=== PATIENT | female | born 1960 | race Caucasian/White ===

== ENCOUNTER 2016-05-15 08:13 | Emergency (ER) | payer OTHER ==
[2016-05-15 08:50] LABS: MEAN CORPUSCULAR HEMOGLOBIN 32.3 pg (27.0-33.0); MEAN CORPUSCULAR HGB CONC 34.2 g/dl (32.0-36.5); MEAN CORPUSCULAR VOLUME 94.5 fl (80.0-96.0); RED CELL DISTRIBUTION WIDTH 11.8 % (11.5-14.5); WHITE BLOOD COUNT 6.4 K/mm3 (4.0-10.0)
[2016-05-15] MEDS ORDERED: KETOROLAC 30 MG/ML VIAL (J1885) As Ordered ONE (08:51)
[2016-05-15] MEDS ORDERED: ONDANSETRON 4MG/2ML VIAL (J2405) As Ordered ONE (08:51)
[2016-05-15] MEDS ORDERED: MORPHINE 4 MG/ML 1ML SYRINGE As Ordered ONE ×3 (08:51→13:57)
[2016-05-15 08:57] LABS: ANION GAP 12 MEQ/L (8-16); BLOOD UREA NITROGEN 10 MG/DL (7-18); CALCIUM LEVEL 9.1 MG/DL (8.5-10.1); CARBON DIOXIDE LEVEL 26 MEQ/L (21-32); CHLORIDE LEVEL 108 MEQ/L (98-107); GLOMERULAR FILTRATION RATE > 60.0 (>51); GLUCOSE, FASTING 161 MG/DL (70-105); POTASSIUM SERUM 3.8 MEQ/L (3.5-5.1); SODIUM LEVEL 146 MEQ/L (136-145)
[2016-05-15] MEDS ORDERED: diphenhydrAMINE INJ 50MG/ML VIAL (J1200) As Ordered ONE (09:28)
--- NOTE | 2016-05-15 09:40 | REP ---
Clinical: Left flank pain. Comparison: 05/17/2010. Findings: Mild to moderate acute left-sided obstructive uropathy is appreciated with perinephric and periureteral stranding as well as hydroureteronephrosis secondary to a 4 mm calculus in the distal left ureter (images 130 - 131). The right kidney/ureter and bladder appear normal and no further urinary tract calculi are identified. Liver, spleen, pancreas, bilateral adrenal glands are normal for noncontrast examination. The patient is status post cholecystectomy. The enteric system is without obstruction or acute inflammatory process. No pelvic fluid or ascites. No free air. No adenopathy. Pelvis demonstrates collapsed normal bladder and age-appropriate uterus/adnexa. Atherosclerotic changes of the aorta and branch vessels noted without aneurysm. Surrounding musculoskeletal structures demonstrate degenerative changes without focal osseous abnormality. Lung bases clear. Impression: Acute mild to moderate left-sided obstructive uropathy with a 4 mm obstructing calculus in the distal left ureter. Signed by Marvin Narayan MD 05/15/2016 09:32 A
[2016-05-15] MEDS ORDERED: cefTRIAXone SOD 1 GM VIAL (J0696) As Ordered ONE (13:49)
--- NOTE | 2016-05-15 15:20 | EDDOCDS ---
Physician Documentation [facility] Name: Stacie Canales Age: 55 yrs Sex: Female : 1960 Arrival Date: 05/15/2016 Time: 08:13 Bed 5 Private MD: Disposition: 05/15 13:55 I have independently interviewed and examined the patient, and I agree with the sd1 investigation, diagnosis and treatment plan as documented by the Resident. Disposition: 05/15/16 14:50 Discharged to Home/Self Care. Impression: Calculus of ureter. - Condition is Stable. - Discharge Instructions: Kidney Stones, Dietary Guidelines to Help Prevent Kidney Stones. - Prescriptions for Percocet 5- 325 mg Oral Tablet - take 1 tablet by ORAL route every 6 hours As needed MDD: 4 tabs; 20 tablet. Cipro 500 mg Oral Tablet - take 1 tablet by ORAL route every 12 hours; 14 tablet. - Medication Reconciliation, Local Pharmacy Hours form. - Follow up: Bethel Navarrete; When: 1 week; Reason: Recheck today's complaints. - Problem is new. - Symptoms have improved. - Notes: You were evaluated in the emergency department for kidney stones. Your laboratory results were essentially within normal limits. The CT of your abdomen and pelvis reported an obstructing stone in the distal portion of your ureter (the tube between your kidney and bladder.) Your pain was controlled with medication in the ED. Pain medication has been prescribed for out-patient control. An analysis of your urine showed an infection for which an antibiotic was given in the ED and a prescription has been provided as an out-patient. Please follow-up in the ED in 24 hours to re-assess your symptoms. Also please follow-up with Bethel Navarrete in 1 week. Historical: - Allergies: Codeine Sulfate (Vomit); - Home Meds: 1. Nexium Oral 1 cap once daily (Last dose: 05/14/2016 20:00) 2. Tricor Oral 1 cap once daily (Last dose: 05/15/2016 08:00) - PMHx: GERD; Hypercholesterolemia; - PSHx: Appendectomy; Cholecystectomy; - Social history: Smoking status: Patient states former smoker of tobacco. No barriers to communication noted, The patient speaks fluent Korean. - Family history: Not pertinent. - : The pt / caregiver states he / she is not on anticoagulants. Home medication list is obtained from the patient. - Exposure Risk Screening:: None identified. Vital Signs: 08:25 BP 196 / 90; Pulse 72; Resp 22; Pulse Ox 95% on R/A; Weight 77.11 kg / 170 lbs; Height dwg 5 ft. 3 in. (160.02 cm); Pain 10/10; 08:27 Temp 96.8(O); dwg 09:30 BP 180 / 89; Pulse 65; Resp 18; Temp 97.8(O); Pulse Ox 94% on R/A; Pain 6/10; ck1 13:06 BP 123 / 69; Pulse 71; Resp 18; Temp 98.3(O); Pulse Ox 94% on R/A; Pain 2/10; ck1 14:29 BP 123 / 60; Pulse 92; Resp 18; Pulse Ox 96% on R/A; Pain 2/10; kc3 15:16 BP 134 / 65; Pulse 88; Resp 18; Temp 98.5(O); Pulse Ox 92% on R/A; Pain 2/10; ck1 08:25 Body Mass Index 30.11 (77.11 kg, 160.02 cm) dwg MDM: 08:41 IV Saline Lock ordered. jo4 08:42 morphine 4 mg IVP every 15 minutes; Document pain score/vitals after each dose (Hold if jo4 SBP < 90mmHg) x2 ordered. 08:42 ketorolac 15 mg IVP once ordered. jo4 08:42 Ondansetron 4 mg IVP once ordered. jo4 08:42 Urine Strainer ordered. jo4 08:43 CBC Ordered. EDMS 08:43 BMP Ordered. EDMS 08:43 Urinalysis Ordered. EDMS 08:46 CT ABD & PELVIS: No Contrast Ordered. EDMS 08:56 CBC Reviewed. jo4 09:08 ED course: 55 yo female healthy presents reporting abrupt onset of left flank pain with sd1 hematuria no F/C and with N/V no abdominal pain never similar symptoms nothing makes pain worse or better exam well appearing in no distress heart rrr no murmur lungs ctab abd benign +cvat plan pain control labs imaging. 09:15 diphenhydrAMINE 12.5 mg IVP once ordered. jo4 09:15 BMP Reviewed. jo4 09:30 [facility] Payment Agreement was scanned into [employer] and attached to record. jp5 09:30 Financial registration complete. jp5 11:45 Fluid Challenge ordered. jo4 13:15 CT ABD & PELVIS: No Contrast Reviewed. jo4 13:44 Urinalysis Reviewed. jo4 13:46 cefTRIAXone 1 grams IVPB once over 30 mins; dilute in 50mL of NS or D5W ordered. jo4 13:55 morphine 4 mg IVP every 15 minutes; Document pain score/vitals after each dose (Hold if jo4 SBP < 90mmHg) x2 ordered. 14:08 oxyCODONE-acetaminophen 5 mg-325 mg 1 tabs PO once ordered. jo4 Administered Medications: 08:57 Drug: morphine 4 mg [morphine 4 mg/mL intravenous cartridge (1 mL)] Route: IVP; Site: ck1 right hand; 09:30 Follow up: BP 180 / 89; Pulse 65 bpm; Resp 18 bpm; Temp 97.8 Oral; Pulse Ox 94% RA; ck1 Pain 6/10 Adult; Response: Confirmed pt not driving.; No Adverse Reaction; Pain is decreased 08:57 Drug: ketorolac 15 mg [ketorolac 30 mg/mL (1 mL) injection solution (0.5 mL)] Route: ck1 IVP; Site: right hand; 08:57 Drug: Ondansetron 4 mg [ondansetron HCl 2 mg/mL intravenous solution (2 mL)] Route: 1 IVP; Site: right hand; 09:30 Drug: diphenhydrAMINE 12.5 mg [diphenhydramine 50 mg/mL injection solution (0.25 mL)] [facility] Route: IVP; Site: right hand; 11:36 Drug: morphine 4 mg [morphine 4 mg/mL intravenous cartridge (1 mL)] Route: IVP; Site: ck1 right hand; 14:00 Drug: cefTRIAXone 1 grams [ceftriaxone 1 gram solution for injection] Route: IVPB; kc3 Infused Over: 30 mins; Site: right hand; 14:37 Follow up: IV Status: Completed infusion ck1 14:00 Drug: morphine 4 mg [morphine 4 mg/mL intravenous cartridge (1 mL)] Route: IVP; Site: kc3 right hand; 14:29 Follow up: BP 123 / 60; Pulse 92 bpm; Resp 18 bpm; Pulse Ox 96% RA; Pain 2/10 Adult kc3 14:21 Not Given (Patient Refused): oxyCODONE-acetaminophen 5 mg-325 mg 1 tabs PO once ck1 Signatures: Dispatcher [employer] Lacy Buck MD MD sd1 Iván Beth RN RN Hyacinth Farris RN RN ck1 Matthew Dudley jp5 Crys Donnelly DO DO jo4 Crane, Kelsi RN kc3 The chart was reviewed and I authenticate all verbal orders and agree with the evaluation and treatment provided.Attachments: 09:30 [facility] Payment Agreement jp5 MTDD
--- NOTE | 2016-05-15 15:20 | EDDOCDS ---
Nurse's Notes [facility] Name: Stacie Canales Age: 55 yrs Sex: Female : 1960 Arrival Date: 05/15/2016 Time: 08:13 Bed 5 Private MD: Diagnosis: Calculus of ureter Presentation: 05/15 08:17 Presenting complaint: Patient states: Sudden onset of left flank pain starting at 745am dwg today. Suicide/Homicide risk assessment- the patient denies having any suicidal and/or homicidal ideations and does not present with any other emotional, behavioral or mental health complaints. Status: Patient is not a social service liaison or dependent. Transition of care: patient was not received from another setting of care. 08:17 Acuity: MAYRA Level 3 dwg 08:17 Method Of Arrival: Wheelchair dwg 08:27 Adult Sepsis Screening: The patient does not have new or worsening altered mentation. dwg Patient has a respiratory rate of greater than or equal to 22 (1 point). Systolic blood pressure is greater than 100. Patient has a qSOFA score of 1- Negative Sepsis Screen. 08:27 Presenting complaint: Patient states: Also nauseated with vomiting. Direct to room 5, dwg report given to Hyacinth Burrell RN. Red Flag criteria, patient assessed and taken directly to a bed. Triage Assessment: 08:21 General: Appears in no apparent distress, uncomfortable. Pain: Pain currently is 10 out dwg of 10 on a pain scale. HIV screening NA for this visit Offered previously. Historical: - Allergies: Codeine Sulfate (Vomit); - Home Meds: 1. Nexium Oral 1 cap once daily (Last dose: 05/14/2016 20:00) 2. Tricor Oral 1 cap once daily (Last dose: 05/15/2016 08:00) - PMHx: GERD; Hypercholesterolemia; - PSHx: Appendectomy; Cholecystectomy; - Social history: Smoking status: Patient states former smoker of tobacco. No barriers to communication noted, The patient speaks fluent [place] Island[place]. - Family history: Not pertinent. - : The pt / caregiver states he / she is not on anticoagulants. Home medication list is obtained from the patient. - Exposure Risk Screening:: None identified. Screenin:31 Screening information is obtained from the patient. Fall risk: No risks identified. ck1 Assistance ADL's: requires no assistance with activities of daily living. Abuse/DV Screen: The patient / caregiver reports he/she is: not in a situation that causes fear, pain or injury. Nutritional screening: No deficits noted. Advance Directives: Currently, there is no health care proxy. home support is adequate. Assessment: 08:31 General: Appears distressed, uncomfortable, Behavior is appropriate for age, ck1 cooperative. Pain: Location: left flank Pain currently is 12 out of 10 on a pain scale. Neurological: Level of Consciousness is awake, alert, obeys commands, Oriented to person, place, time. Respiratory: Respiratory effort is unlabored, Respiratory pattern is regular, symmetrical. GI: Reports nausea. : Reports hematuria Denies burning with urination, urinary frequency. Derm: Skin is intact, is healthy with good turgor, Skin is pink, warm & dry. Musculoskeletal: Circulation, motion, and sensation intact Range of motion intact in all extremities. 09:31 General: Appears in no apparent distress, Behavior is appropriate for age, cooperative. ck1 Pain: Location: left flank Pain currently is 6 out of 10 on a pain scale. GI: Denies nausea, vomiting. Derm: Skin is intact, is healthy with good turgor, Skin is pink, warm & dry. Musculoskeletal: Circulation, motion, and sensation intact Range of motion intact in all extremities. 10:30 General: Appears in no apparent distress, comfortable, Behavior is appropriate for age, ck1 cooperative. Pain: Location: left flank Pain currently is 6 out of 10 on a pain scale. Neurological: Level of Consciousness is awake, alert, obeys commands, Oriented to person, place, time. Cardiovascular: No deficits noted. Respiratory: Respiratory effort is unlabored, Respiratory pattern is regular, symmetrical. GI: No deficits noted. Derm: Skin is intact, is healthy with good turgor, Skin is pink, warm & dry. 11:36 General: Appears in no apparent distress, comfortable, Behavior is appropriate for age, ck1 cooperative. Pain: Location: left flank Pain currently is 8 out of 10 on a pain scale. Neurological: Level of Consciousness is awake, alert, obeys commands, Oriented to person, place, time. Cardiovascular: No deficits noted. Respiratory: Respiratory effort is unlabored, Respiratory pattern is regular, symmetrical. GI: Denies nausea, vomiting. Derm: Skin is intact, is healthy with good turgor, Skin is pink, warm & dry. Musculoskeletal: Circulation, motion, and sensation intact Range of motion intact in all extremities. 11:53 General: Patient states pain has improved to 2/10. PO fluids provided, will continue to ck1 monitor. 13:06 General: Appears in no apparent distress, comfortable, Behavior is appropriate for age, ck1 cooperative. Pain: Location: left flank Pain currently is 2 out of 10 on a pain scale. Neurological: Level of Consciousness is awake, alert, obeys commands, Oriented to person, place, time. Cardiovascular: No deficits noted. Respiratory: Respiratory effort is unlabored, Respiratory pattern is regular, symmetrical. GI: No deficits noted. Derm: Skin is intact, is healthy with good turgor, Skin is pink, warm & dry. Musculoskeletal: No deficits noted. 14:05 General: Appears in no apparent distress, comfortable, to be sleeping. Behavior is ck1 appropriate for age, cooperative. Pain: Location: left flank Pain currently is 2 out of 10 on a pain scale. Respiratory: No deficits noted. Derm: Skin is intact, is healthy with good turgor, Skin is pink, warm & dry. Musculoskeletal: Circulation, motion, and sensation intact Range of motion intact in all extremities. 15:17 General: Appears in no apparent distress, comfortable, Behavior is appropriate for age, ck1 cooperative. Pain: Location: left flank Pain currently is 2 out of 10 on a pain scale. Neurological: Level of Consciousness is awake, alert, obeys commands, Oriented to person, place, time. Cardiovascular: No deficits noted. Respiratory: Respiratory effort is unlabored, Respiratory pattern is regular, symmetrical. GI: No deficits noted. Derm: Skin is pink, warm & dry. Musculoskeletal: Circulation, motion, and sensation intact Range of motion intact in all extremities. Vital Signs: 08:25 BP 196 / 90; Pulse 72; Resp 22; Pulse Ox 95% on R/A; Weight 77.11 kg; Height 5 ft. 3 dwg in. (160.02 cm); Pain 10; 08:27 Temp 96.8(O); dwg 09:30 BP 180 / 89; Pulse 65; Resp 18; Temp 97.8(O); Pulse Ox 94% on R/A; Pain 6/; ck1 13:06 BP 123 / 69; Pulse 71; Resp 18; Temp 98.3(O); Pulse Ox 94% on R/A; Pain 2/10; ck1 14:29 BP 123 / 60; Pulse 92; Resp 18; Pulse Ox 96% on R/A; Pain 2/10; kc3 15:16 BP 134 / 65; Pulse 88; Resp 18; Temp 98.5(O); Pulse Ox 92% on R/A; Pain 2/10; ck1 08:25 Body Mass Index 30.11 (77.11 kg, 160.02 cm) [facility] Vitals: 08:21 Log In Time: May 15, 2016 at 08:10. [facility] ED Course: 08:16 Patient visited by Riaz Kaur. mm15 08:16 Patient moved to Waiting mm15 08:17 Hyacinth Flores RN is Primary Nurse. dwg 08:17 Patient moved to 5 dwg 08:18 Crys Donnelly DO is PHCP. jo4 08:18 Lacy Steiner MD is Attending Physician. jo4 08:19 Triage Initiated dwg 08:28 Patient visited by Crys Donnelly DO. jo4 08:30 Inserted saline lock: 20 gauge in right hand and blood collected. The patient tolerated ck1 the procedure well. 08:31 The patient / caregiver is instructed regarding the plan of care and ED course. ck1 08:46 Patient visited by Hyacinth Flores RN. ck1 08:57 Patient visited by Hyacinth Flores RN. ck1 09:18 Patient visited by Hyacinth Flores RN. ck1 09:30 Patient visited by Hyacinth Flores RN. ck1 09:30 [facility] Payment Agreement was scanned into [employer] and attached to record. jp5 09:44 Patient visited by Hyacinth Flores RN. ck1 09:59 CT ABD & PELVIS: No Contrast Returned. EDMS 10:15 Patient visited by Hyacinth Flores RN. ck1 11:06 Patient visited by Hyacinth Flores RN. ck1 11:32 Patient visited by Hyacinth Flores RN. ck1 11:53 Patient visited by Hyacinth Flores RN. ck1 12:18 Urinalysis Sent. mlb1 12:19 Patient visited by Hyacinth Flores RN. ck1 12:54 Patient visited by Curtis Sunshine, JUDIE. jlf 13:07 No procedures done that require assistance. ck1 13:25 Patient visited by Hyacinth Flores,ARMANDO. ck1 13:53 Patient visited by Curtis Sunshine, JUDIE. jlf 14:18 Patient visited by Hyacinth Flores RN. ck1 14:43 Bethel Navarrete is Referral Physician. jo4 14:50 Bethel Navarrete is Referral Physician. jo4 15:16 Discontinued lock intact, bleeding controlled, pressure dressing applied, No ck1 redness/swelling at site. Administered Medications: 08:57 Drug: morphine 4 mg [morphine 4 mg/mL intravenous cartridge (1 mL)] Route: IVP; Site: ck right hand; 09:30 Follow up: BP 180 / 89; Pulse 65 bpm; Resp 18 bpm; Temp 97.8 Oral; Pulse Ox 94% RA; ck1 Pain 6/10 Adult; Response: Confirmed pt not driving.; No Adverse Reaction; Pain is decreased 08:57 Drug: ketorolac 15 mg [ketorolac 30 mg/mL (1 mL) injection solution (0.5 mL)] Route: ck1 IVP; Site: right hand; 08:57 Drug: Ondansetron 4 mg [ondansetron HCl 2 mg/mL intravenous solution (2 mL)] Route: ck1 IVP; Site: right hand; 09:30 Drug: diphenhydrAMINE 12.5 mg [diphenhydramine 50 mg/mL injection solution (0.25 mL)] ck1 Route: IVP; Site: right hand; 11:36 Drug: morphine 4 mg [morphine 4 mg/mL intravenous cartridge (1 mL)] Route: IVP; Site: ck1 right hand; 14:00 Drug: cefTRIAXone 1 grams [ceftriaxone 1 gram solution for injection] Route: IVPB; kc3 Infused Over: 30 mins; Site: right hand; 14:37 Follow up: IV Status: Completed infusion ck1 14:00 Drug: morphine 4 mg [morphine 4 mg/mL intravenous cartridge (1 mL)] Route: IVP; Site: [facility] right hand; 14:29 Follow up: BP 123 / 60; Pulse 92 bpm; Resp 18 bpm; Pulse Ox 96% RA; Pain / Adult 3 14:21 Not Given (Patient Refused): oxyCODONE-acetaminophen 5 mg-325 mg 1 tabs PO once ck1 Order Results: Lab Order: CBC; SPEC'M 05/15/16 08:29 Test: WHITE BLOOD COUNT; Value: 6.4; Range: 4.0-10.0; Units: K/mm3; Status: F Test: RED BLOOD COUNT; Value: 4.26; Range: 4.00-5.40; Units: M/mm3; Status: F Test: HEMOGLOBIN; Value: 13.8; Range: 12.0-16.0; Units: g/dl; Status: F Test: HEMATOCRIT; Value: 40.2; Range: 36.0-47.0; Units: %; Status: F Test: MEAN CORPUSCULAR VOLUME; Value: 94.5; Range: 80.0-96.0; Units: fl; Status: F Test: MEAN CORPUSCULAR HEMOGLOBIN; Value: 32.3; Range: 27.0-33.0; Units: pg; Status: F Test: MEAN CORPUSCULAR HGB CONC; Value: 34.2; Range: 32.0-36.5; Units: g/dl; Status: F Test: RED CELL DISTRIBUTION WIDTH; Value: 11.8; Range: 11.5-14.5; Units: %; Status: F Test: PLATELET COUNT, AUTOMATED; Value: 207; Range: 150-450; Units: k/mm3; Status: F Lab Order: BMP; SPEC'M 05/15/16 08:29 Test: GLUCOSE, FASTING; Value: 161; Range: 70-105; Abnormal: Above high normal; Units: MG/DL; Status: F Test: BLOOD UREA NITROGEN; Value: 10; Range: 7-18; Units: MG/DL; Status: F Test: CREATININE FOR GFR; Value: 1.00; Range: 0.55-1.02; Units: MG/DL; Status: F Test: GLOMERULAR FILTRATION RATE; Value: > 60.0; Range: >51; Status: F Test: SODIUM LEVEL; Value: 146; Range: 136-145; Abnormal: Above high normal; Units: MEQ/L; Status: F Test: POTASSIUM SERUM; Value: 3.8; Range: 3.5-5.1; Units: MEQ/L; Status: F Test: CHLORIDE LEVEL; Value: 108; Range: 98-107; Abnormal: Above high normal; Units: MEQ/L; Status: F Test: CARBON DIOXIDE LEVEL; Value: 26; Range: 21-32; Units: MEQ/L; Status: F Test: ANION GAP; Value: 12; Range: 8-16; Units: MEQ/L; Status: F Test: CALCIUM LEVEL; Value: 9.1; Range: 8.5-10.1; Units: MG/DL; Status: F Test Note: ; Units are mL/min/1.73 m2 Chronic Kidney Disease Staging per NKF: Stage I & II GFR >=60 Normal to Mildly Decreased Stage III GFR 30-59 Moderately Decreased Stage IV GFR 15-29 Severely Decreased Stage V GFR <15 Very Little GFR Left ESRD GFR <15 on [employer]UCK [employer] HEL[employer] Lab Order: Urinalysis; SPEC'M 05/15/16 12:17 Test: APPEARANCE, URINE; Value: TURBID; Range: CLEAR; Abnormal: Above high normal; Status: F Test: COLOR, URINE; Value: MAGED; Range: YELLOW; Status: F Test: PH,URINE; Value: 5.0; Range: 5.0-9.0; Units: UNITS; Status: F Test: SPECIFIC GRAVITY URINE AUTO; Value: 1.032; Range: 1.002-1.035; Status: F Test: PROTEIN, URINE AUTO; Value: 2+; Range: NEGATIVE; Abnormal: Above high normal; Units: mg/dL; Status: F Test: GLUCOSE, URINE (UA) AUTO; Value: NEGATIVE; Range: NEGATIVE; Units: mg/dL; Status: F Test: KETONE, URINE AUTO; Value: TRACE; Range: NEGATIVE; Abnormal: Above high normal; Units: mg/dL; Status: F Test: UROBILINOGEN, URINE AUTO; Value: 0.2; Range: 0.0-2.0; Units: mg/dL; Status: F Test: BILIRUBIN, URINE AUTO; Value: NEGATIVE; Range: NEGATIVE; Status: F Test: NITRITE, URINE AUTO; Value: NEGATIVE; Range: NEGATIVE; Status: F Test: LEUKOCYTE ESTERASE, URINE AUTO; Value: TRACE; Range: NEGATIVE; Abnormal: Above high normal; Status: F Test: BLOOD, URINE BLOOD; Value: 3+; Range: NEGATIVE; Abnormal: Above high normal; Status: F Test: WBC, URINE AUTO; Value: 58; Range: 0-3; Abnormal: Above high normal; Units: /HPF; Status: F Test: RBC, URINE AUTO; Value: TNTC; Range: 0-3; Abnormal: Above high normal; Units: /HPF; Status: F Test: BACTERIA, URINE AUTO; Value: 2+; Range: NEGATIVE; Abnormal: Above high normal; Status: F Test: SQUAMOUS EPITHELIAL CELL UR AU; Value: 2; Range: 0-6; Units: /HPF; Status: F Test: MUCUS, URINE; Value: LARGE; Range: NEGATIVE; Status: F Test: HYALINE CAST, URINE AUTO; Value: 0; Range: 0-1; Units: /LPF; Status: F Test: AMORPHOUS SEDIMENT; Value: MODERATE; Range: NEGATIVE; Abnormal: Above high normal; Status: F Radiology Order: CT ABD & PELVIS: No Contrast Test: CT ABD & PELVIS: No Contrast REASON FOR EXAMINATION: Left flank pain; Clinical: Left flank pain.; ; Comparison: 05/17/2010.; ; Findings:; Mild to moderate acute left-sided obstructive uropathy is appreciated with; perinephric and periureteral stranding as well as hydroureteronephrosis secondary; to a 4 mm calculus in the distal left ureter (images 130 - 131). The right; kidney/ureter and bladder appear normal and no further urinary tract calculi are; identified.; ; Liver, spleen, pancreas, bilateral adrenal glands are normal for noncontrast; examination. The patient is status post cholecystectomy. The enteric system is; without obstruction or acute inflammatory process. No pelvic fluid or ascites.; No free air. No adenopathy. Pelvis demonstrates collapsed normal bladder and; age-appropriate uterus/adnexa. Atherosclerotic changes of the aorta and branch; vessels noted without aneurysm. Surrounding musculoskeletal structures; demonstrate degenerative changes without focal osseous abnormality. Lung bases; clear.; ; Impression:; Acute mild to moderate left-sided obstructive uropathy with a 4 mm obstructing; calculus in the distal left ureter.; ; ; Signed by; Marvin Narayan MD 05/15/2016 09:32 A; Outcome: 13:07 Discharge Assessment: patient administered narcotics - yes. Pt provided with safe ck1 discharge. CT Study completed. 14:47 Discharge ordered by Provider. jo4 14:50 Discharge ordered by Provider. jo4 15:16 The following High Risk Discharge criteria are identified: None. Discharged to home ck1 ambulatory, with significant other. Condition: stable. Discharge instructions given to patient, Instructed on discharge instructions, follow up and referral plans. medication usage, Demonstrated understanding of instructions, medications, Pt was receptive of discharge instructions/ teaching. Property :Personal belongings accompany Pt. 15:19 Patient left the ED. ck1 Signatures: Dispatcher [employer] EDMS Iván Beth, RN RN Mike Schrader RN RN mlb1 Hyacinth Flores RN RN ck1 Riaz Kaur mm15 Curtis Sunshine, JUDIE SEAL EXTRUSION OPERATOR Matthew Rich jp5 Deysi Garcia,ARMANDO RN kc3 Crys Donnelly DO DO jo4 MTDRoselia
--- NOTE | 2016-05-17 16:20 | EDDOCDS ---
Physician Documentation [facility] Name: Stacie Canales Age: 55 yrs Sex: Female : 1960 Arrival Date: 05/15/2016 Time: 08:13 Bed 5 Private MD: Disposition: 05/15 13:55 I have independently interviewed and examined the patient, and I agree with the sd1 investigation, diagnosis and treatment plan as documented by the Resident. Disposition: 05/15/16 14:50 Discharged to Home/Self Care. Impression: Calculus of ureter. - Condition is Stable. - Discharge Instructions: Kidney Stones, Dietary Guidelines to Help Prevent Kidney Stones. - Prescriptions for Percocet 5- 325 mg Oral Tablet - take 1 tablet by ORAL route every 6 hours As needed MDD: 4 tabs; 20 tablet. Cipro 500 mg Oral Tablet - take 1 tablet by ORAL route every 12 hours; 14 tablet. - Medication Reconciliation, Local Pharmacy Hours form. - Follow up: Bethel Navarrete; When: 1 week; Reason: Recheck today's complaints. - Problem is new. - Symptoms have improved. - Notes: You were evaluated in the emergency department for kidney stones. Your laboratory results were essentially within normal limits. The CT of your abdomen and pelvis reported an obstructing stone in the distal portion of your ureter (the tube between your kidney and bladder.) Your pain was controlled with medication in the ED. Pain medication has been prescribed for out-patient control. An analysis of your urine showed an infection for which an antibiotic was given in the ED and a prescription has been provided as an out-patient. Please follow-up in the ED in 24 hours to re-assess your symptoms. Also please follow-up with Bethel Navarrete in 1 week. Historical: - Allergies: Codeine Sulfate (Vomit); - Home Meds: 1. Nexium Oral 1 cap once daily (Last dose: 05/14/2016 20:00) 2. Tricor Oral 1 cap once daily (Last dose: 05/15/2016 08:00) - PMHx: GERD; Hypercholesterolemia; - PSHx: Appendectomy; Cholecystectomy; - Social history: Smoking status: Patient states former smoker of tobacco. No barriers to communication noted, The patient speaks fluent [place]. - Family history: Not pertinent. - : The pt / caregiver states he / she is not on anticoagulants. Home medication list is obtained from the patient. - Exposure Risk Screening:: None identified. Vital Signs: 08:25 BP 196 / 90; Pulse 72; Resp 22; Pulse Ox 95% on R/A; Weight 77.11 kg / 170 lbs; Height dwg 5 ft. 3 in. (160.02 cm); Pain 10/10; 08:27 Temp 96.8(O); dwg 09:30 BP 180 / 89; Pulse 65; Resp 18; Temp 97.8(O); Pulse Ox 94% on R/A; Pain 6/10; ck1 13:06 BP 123 / 69; Pulse 71; Resp 18; Temp 98.3(O); Pulse Ox 94% on R/A; Pain 2/10; ck1 14:29 BP 123 / 60; Pulse 92; Resp 18; Pulse Ox 96% on R/A; Pain 2/10; kc3 15:16 BP 134 / 65; Pulse 88; Resp 18; Temp 98.5(O); Pulse Ox 92% on R/A; Pain 2/10; ck1 08:25 Body Mass Index 30.11 (77.11 kg, 160.02 cm) dwg MDM: 08:41 IV Saline Lock ordered. jo4 08:42 morphine 4 mg IVP every 15 minutes; Document pain score/vitals after each dose (Hold if jo4 SBP < 90mmHg) x2 ordered. 08:42 ketorolac 15 mg IVP once ordered. jo4 08:42 Ondansetron 4 mg IVP once ordered. jo4 08:42 Urine Strainer ordered. jo4 08:43 CBC Ordered. EDMS 08:43 BMP Ordered. EDMS 08:43 Urinalysis Ordered. EDMS 08:46 CT ABD & PELVIS: No Contrast Ordered. EDMS 08:56 CBC Reviewed. jo4 09:08 ED course: 55 yo female healthy presents reporting abrupt onset of left flank pain with sd1 hematuria no F/C and with N/V no abdominal pain never similar symptoms nothing makes pain worse or better exam well appearing in no distress heart rrr no murmur lungs ctab abd benign +cvat plan pain control labs imaging. 09:15 diphenhydrAMINE 12.5 mg IVP once ordered. jo4 09:15 BMP Reviewed. jo4 09:30 [facility] Payment Agreement was scanned into [employer] and attached to record. jp5 09:30 Financial registration complete. jp5 11:45 Fluid Challenge ordered. jo4 13:15 CT ABD & PELVIS: No Contrast Reviewed. jo4 13:44 Urinalysis Reviewed. jo4 13:46 cefTRIAXone 1 grams IVPB once over 30 mins; dilute in 50mL of NS or D5W ordered. jo4 13:55 morphine 4 mg IVP every 15 minutes; Document pain score/vitals after each dose (Hold if jo4 SBP < 90mmHg) x2 ordered. 14:08 oxyCODONE-acetaminophen 5 mg-325 mg 1 tabs PO once ordered. jo4 05/16 10:16 T-Sheet-- Draft Copy was scanned into [employer] and attached to record. gb Administered Medications: 05/15 08:57 Drug: morphine 4 mg [morphine 4 mg/mL intravenous cartridge (1 mL)] Route: IVP; Site: [facility] right hand; 09:30 Follow up: BP 180 / 89; Pulse 65 bpm; Resp 18 bpm; Temp 97.8 Oral; Pulse Ox 94% RA; ck1 Pain 6/10 Adult; Response: Confirmed pt not driving.; No Adverse Reaction; Pain is decreased 08:57 Drug: ketorolac 15 mg [ketorolac 30 mg/mL (1 mL) injection solution (0.5 mL)] Route: ck1 IVP; Site: right hand; 08:57 Drug: Ondansetron 4 mg [ondansetron HCl 2 mg/mL intravenous solution (2 mL)] Route: 1 IVP; Site: right hand; 09:30 Drug: diphenhydrAMINE 12.5 mg [diphenhydramine 50 mg/mL injection solution (0.25 mL)] [facility] Route: IVP; Site: right hand; 11:36 Drug: morphine 4 mg [morphine 4 mg/mL intravenous cartridge (1 mL)] Route: IVP; Site: ck right hand; 14:00 Drug: cefTRIAXone 1 grams [ceftriaxone 1 gram solution for injection] Route: IVPB; kc3 Infused Over: 30 mins; Site: right hand; 14:37 Follow up: IV Status: Completed infusion ck1 14:00 Drug: morphine 4 mg [morphine 4 mg/mL intravenous cartridge (1 mL)] Route: IVP; Site: kc3 right hand; 14:29 Follow up: BP 123 / 60; Pulse 92 bpm; Resp 18 bpm; Pulse Ox 96% RA; Pain 210 Adult kc3 14:21 Not Given (Patient Refused): oxyCODONE-acetaminophen 5 mg-325 mg 1 tabs PO once ck1 Signatures: Dispatcher [employer] EDMS Lacy Steiner MD MD sd1 Iván Beth, RN RN dw Luz Marina, Reg Reg gb Hyacinth FloresRN RN ck1 Matthew Dudley jp5 Crys Donnelly DO DO jo4 Deysi Garcia RN kc3 The chart was reviewed and I authenticate all verbal orders and agree with the evaluation and treatment provided.Attachments: 09:30 [facility] Payment Agreement jp5 05/16 10:16 T-Sheet-- Draft Copy gb Chart Complete MTDD
--- NOTE | 2016-05-17 16:20 | EDDOCDS ---
Physician Documentation [facility] Name: Stacie Canales Age: 55 yrs Sex: Female : 1960 Arrival Date: 05/15/2016 Time: 08:13 Bed 5 Private MD: Disposition: 05/15 13:55 I have independently interviewed and examined the patient, and I agree with the sd1 investigation, diagnosis and treatment plan as documented by the Resident. Disposition: 05/15/16 14:50 Discharged to Home/Self Care. Impression: Calculus of ureter. - Condition is Stable. - Discharge Instructions: Kidney Stones, Dietary Guidelines to Help Prevent Kidney Stones. - Prescriptions for Percocet 5- 325 mg Oral Tablet - take 1 tablet by ORAL route every 6 hours As needed MDD: 4 tabs; 20 tablet. Cipro 500 mg Oral Tablet - take 1 tablet by ORAL route every 12 hours; 14 tablet. - Medication Reconciliation, Local Pharmacy Hours form. - Follow up: Bethel Navarrete; When: 1 week; Reason: Recheck today's complaints. - Problem is new. - Symptoms have improved. - Notes: You were evaluated in the emergency department for kidney stones. Your laboratory results were essentially within normal limits. The CT of your abdomen and pelvis reported an obstructing stone in the distal portion of your ureter (the tube between your kidney and bladder.) Your pain was controlled with medication in the ED. Pain medication has been prescribed for out-patient control. An analysis of your urine showed an infection for which an antibiotic was given in the ED and a prescription has been provided as an out-patient. Please follow-up in the ED in 24 hours to re-assess your symptoms. Also please follow-up with Bethel Navarrete in 1 week. Historical: - Allergies: Codeine Sulfate (Vomit); - Home Meds: 1. Nexium Oral 1 cap once daily (Last dose: 05/14/2016 20:00) 2. Tricor Oral 1 cap once daily (Last dose: 05/15/2016 08:00) - PMHx: GERD; Hypercholesterolemia; - PSHx: Appendectomy; Cholecystectomy; - Social history: Smoking status: Patient states former smoker of tobacco. No barriers to communication noted, The patient speaks fluent [place]. - Family history: Not pertinent. - : The pt / caregiver states he / she is not on anticoagulants. Home medication list is obtained from the patient. - Exposure Risk Screening:: None identified. Vital Signs: 08:25 BP 196 / 90; Pulse 72; Resp 22; Pulse Ox 95% on R/A; Weight 77.11 kg / 170 lbs; Height dwg 5 ft. 3 in. (160.02 cm); Pain 10/10; 08:27 Temp 96.8(O); dwg 09:30 BP 180 / 89; Pulse 65; Resp 18; Temp 97.8(O); Pulse Ox 94% on R/A; Pain 6/10; ck1 13:06 BP 123 / 69; Pulse 71; Resp 18; Temp 98.3(O); Pulse Ox 94% on R/A; Pain 2/10; ck1 14:29 BP 123 / 60; Pulse 92; Resp 18; Pulse Ox 96% on R/A; Pain 2/10; kc3 15:16 BP 134 / 65; Pulse 88; Resp 18; Temp 98.5(O); Pulse Ox 92% on R/A; Pain 2/10; ck1 08:25 Body Mass Index 30.11 (77.11 kg, 160.02 cm) dwg MDM: 08:41 IV Saline Lock ordered. jo4 08:42 morphine 4 mg IVP every 15 minutes; Document pain score/vitals after each dose (Hold if jo4 SBP < 90mmHg) x2 ordered. 08:42 ketorolac 15 mg IVP once ordered. jo4 08:42 Ondansetron 4 mg IVP once ordered. jo4 08:42 Urine Strainer ordered. jo4 08:43 CBC Ordered. EDMS 08:43 BMP Ordered. EDMS 08:43 Urinalysis Ordered. EDMS 08:46 CT ABD & PELVIS: No Contrast Ordered. EDMS 08:56 CBC Reviewed. jo4 09:08 ED course: 55 yo female healthy presents reporting abrupt onset of left flank pain with sd1 hematuria no F/C and with N/V no abdominal pain never similar symptoms nothing makes pain worse or better exam well appearing in no distress heart rrr no murmur lungs ctab abd benign +cvat plan pain control labs imaging. 09:15 diphenhydrAMINE 12.5 mg IVP once ordered. jo4 09:15 BMP Reviewed. jo4 09:30 [facility] [place] Agreement was scanned into [employer] and attached to record. jp5 09:30 Financial registration complete. jp5 11:45 Fluid Challenge ordered. jo4 13:15 CT ABD & PELVIS: No Contrast Reviewed. jo4 13:44 Urinalysis Reviewed. jo4 13:46 cefTRIAXone 1 grams IVPB once over 30 mins; dilute in 50mL of NS or D5W ordered. jo4 13:55 morphine 4 mg IVP every 15 minutes; Document pain score/vitals after each dose (Hold if jo4 SBP < 90mmHg) x2 ordered. 14:08 oxyCODONE-acetaminophen 5 mg-325 mg 1 tabs PO once ordered. jo4 05/16 10:16 T-Sheet-- Draft Copy was scanned into [employer] and attached to record. gb Administered Medications: 05/15 08:57 Drug: morphine 4 mg [morphine 4 mg/mL intravenous cartridge (1 mL)] Route: IVP; Site: [facility] right hand; 09:30 Follow up: BP 180 / 89; Pulse 65 bpm; Resp 18 bpm; Temp 97.8 Oral; Pulse Ox 94% RA; ck1 Pain 6/10 Adult; Response: Confirmed pt not driving.; No Adverse Reaction; Pain is decreased 08:57 Drug: ketorolac 15 mg [ketorolac 30 mg/mL (1 mL) injection solution (0.5 mL)] Route: ck1 IVP; Site: right hand; 08:57 Drug: Ondansetron 4 mg [ondansetron HCl 2 mg/mL intravenous solution (2 mL)] Route: 1 IVP; Site: right hand; 09:30 Drug: diphenhydrAMINE 12.5 mg [diphenhydramine 50 mg/mL injection solution (0.25 mL)] [facility] Route: IVP; Site: right hand; 11:36 Drug: morphine 4 mg [morphine 4 mg/mL intravenous cartridge (1 mL)] Route: IVP; Site: ck right hand; 14:00 Drug: cefTRIAXone 1 grams [ceftriaxone 1 gram solution for injection] Route: IVPB; kc3 Infused Over: 30 mins; Site: right hand; 14:37 Follow up: IV Status: Completed infusion ck1 14:00 Drug: morphine 4 mg [morphine 4 mg/mL intravenous cartridge (1 mL)] Route: IVP; Site: kc3 right hand; 14:29 Follow up: BP 123 / 60; Pulse 92 bpm; Resp 18 bpm; Pulse Ox 96% RA; Pain 210 Adult kc3 14:21 Not Given (Patient Refused): oxyCODONE-acetaminophen 5 mg-325 mg 1 tabs PO once ck1 Signatures: Dispatcher [employer] EDMS Lacy Steiner MD MD sd1 Iván Beth, RN RN dw Luz Marina, Reg Reg gb Hyacinth FloresRN RN ck1 Matthew Dudley jp5 Crys Donnelly DO DO jo4 Deysi Garcia RN kc3 The chart was reviewed and I authenticate all verbal orders and agree with the evaluation and treatment provided.Attachments: 09:30 [facility] Payment Agreement jp5 05/16 10:16 T-Sheet-- Draft Copy gb Chart Complete MTDD
--- NOTE | 2016-05-17 16:20 | EDDOCDS ---
Nurse's Notes [facility] Name: Stacie Canales Age: 55 yrs Sex: Female : 1960 Arrival Date: 05/15/2016 Time: 08:13 Bed 5 Private MD: Diagnosis: Calculus of ureter Presentation: 05/15 08:17 Presenting complaint: Patient states: Sudden onset of left flank pain starting at 745am dwg today. Suicide/Homicide risk assessment- the patient denies having any suicidal and/or homicidal ideations and does not present with any other emotional, behavioral or mental health complaints. 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 Transition of care: patient was not received from another setting of care. 08:17 Acuity: MAYRA Level 3 dwg 08:17 Method Of Arrival: Wheelchair dwg 08:27 Adult Sepsis Screening: The patient does not have new or worsening altered mentation. dwg Patient has a respiratory rate of greater than or equal to 22 (1 point). Systolic blood pressure is greater than 100. Patient has a qSOFA score of 1- Negative Sepsis Screen. 08:27 Presenting complaint: Patient states: Also nauseated with vomiting. Direct to room 5, dwg report given to Hyacinth Burrell RN. Red Flag criteria, patient assessed and taken directly to a bed. Triage Assessment: 08:21 General: Appears in no apparent distress, uncomfortable. Pain: Pain currently is 10 out dwg of 10 on a pain scale. HIV screening NA for this visit Offered previously. Historical: - Allergies: Codeine Sulfate (Vomit); - Home Meds: 1. Nexium Oral 1 cap once daily (Last dose: 05/14/2016 20:00) 2. Tricor Oral 1 cap once daily (Last dose: 05/15/2016 08:00) - PMHx: GERD; Hypercholesterolemia; - PSHx: Appendectomy; Cholecystectomy; - Social history: Smoking status: Patient states former smoker of tobacco. No barriers to communication noted, The patient speaks fluent [place]. - Family history: Not pertinent. - : The pt / caregiver states he / she is not on anticoagulants. Home medication list is obtained from the patient. - Exposure Risk Screening:: None identified. Screenin:31 Screening information is obtained from the patient. Fall risk: No risks identified. ck1 Assistance ADL's: requires no assistance with activities of daily living. Abuse/DV Screen: The patient / caregiver reports he/she is: not in a situation that causes fear, pain or injury. Nutritional screening: No deficits noted. Advance Directives: Currently, there is no health care proxy. home support is adequate. Assessment: 08:31 General: Appears distressed, uncomfortable, Behavior is appropriate for age, ck1 cooperative. Pain: Location: left flank Pain currently is 12 out of 10 on a pain scale. Neurological: Level of Consciousness is awake, alert, obeys commands, Oriented to person, place, time. Respiratory: Respiratory effort is unlabored, Respiratory pattern is regular, symmetrical. GI: Reports nausea. : Reports hematuria Denies burning with urination, urinary frequency. Derm: Skin is intact, is healthy with good turgor, Skin is pink, warm & dry. Musculoskeletal: Circulation, motion, and sensation intact Range of motion intact in all extremities. 09:31 General: Appears in no apparent distress, Behavior is appropriate for age, cooperative. ck1 Pain: Location: left flank Pain currently is 6 out of 10 on a pain scale. GI: Denies nausea, vomiting. Derm: Skin is intact, is healthy with good turgor, Skin is pink, warm & dry. Musculoskeletal: Circulation, motion, and sensation intact Range of motion intact in all extremities. 10:30 General: Appears in no apparent distress, comfortable, Behavior is appropriate for age, ck1 cooperative. Pain: Location: left flank Pain currently is 6 out of 10 on a pain scale. Neurological: Level of Consciousness is awake, alert, obeys commands, Oriented to person, place, time. Cardiovascular: No deficits noted. Respiratory: Respiratory effort is unlabored, Respiratory pattern is regular, symmetrical. GI: No deficits noted. Derm: Skin is intact, is healthy with good turgor, Skin is pink, warm & dry. 11:36 General: Appears in no apparent distress, comfortable, Behavior is appropriate for age, ck1 cooperative. Pain: Location: left flank Pain currently is 8 out of 10 on a pain scale. Neurological: Level of Consciousness is awake, alert, obeys commands, Oriented to person, place, time. Cardiovascular: No deficits noted. Respiratory: Respiratory effort is unlabored, Respiratory pattern is regular, symmetrical. GI: Denies nausea, vomiting. Derm: Skin is intact, is healthy with good turgor, Skin is pink, warm & dry. Musculoskeletal: Circulation, motion, and sensation intact Range of motion intact in all extremities. 11:53 General: Patient states pain has improved to 2/10. PO fluids provided, will continue to ck1 monitor. 13:06 General: Appears in no apparent distress, comfortable, Behavior is appropriate for age, ck1 cooperative. Pain: Location: left flank Pain currently is 2 out of 10 on a pain scale. Neurological: Level of Consciousness is awake, alert, obeys commands, Oriented to person, place, time. Cardiovascular: No deficits noted. Respiratory: Respiratory effort is unlabored, Respiratory pattern is regular, symmetrical. GI: No deficits noted. Derm: Skin is intact, is healthy with good turgor, Skin is pink, warm & dry. Musculoskeletal: No deficits noted. 14:05 General: Appears in no apparent distress, comfortable, to be sleeping. Behavior is ck1 appropriate for age, cooperative. Pain: Location: left flank Pain currently is 2 out of 10 on a pain scale. Respiratory: No deficits noted. Derm: Skin is intact, is healthy with good turgor, Skin is pink, warm & dry. Musculoskeletal: Circulation, motion, and sensation intact Range of motion intact in all extremities. 15:17 General: Appears in no apparent distress, comfortable, Behavior is appropriate for age, ck1 cooperative. Pain: Location: left flank Pain currently is 2 out of 10 on a pain scale. Neurological: Level of Consciousness is awake, alert, obeys commands, Oriented to person, place, time. Cardiovascular: No deficits noted. Respiratory: Respiratory effort is unlabored, Respiratory pattern is regular, symmetrical. GI: No deficits noted. Derm: Skin is pink, warm & dry. Musculoskeletal: Circulation, motion, and sensation intact Range of motion intact in all extremities. Vital Signs: 08:25 BP 196 / 90; Pulse 72; Resp 22; Pulse Ox 95% on R/A; Weight 77.11 kg; Height 5 ft. 3 dwg in. (160.02 cm); Pain 10; 08:27 Temp 96.8(O); dwg 09:30 BP 180 / 89; Pulse 65; Resp 18; Temp 97.8(O); Pulse Ox 94% on R/A; Pain 6/; ck1 13:06 BP 123 / 69; Pulse 71; Resp 18; Temp 98.3(O); Pulse Ox 94% on R/A; Pain 2/10; ck1 14:29 BP 123 / 60; Pulse 92; Resp 18; Pulse Ox 96% on R/A; Pain 2/10; kc3 15:16 BP 134 / 65; Pulse 88; Resp 18; Temp 98.5(O); Pulse Ox 92% on R/A; Pain 2/10; ck1 08:25 Body Mass Index 30.11 (77.11 kg, 160.02 cm) [facility] Vitals: 08:21 Log In Time: May 15, 2016 at 08:10. [facility] ED Course: 08:16 Patient visited by Riaz Kaur. mm15 08:16 Patient moved to Waiting mm15 08:17 Hyacinth Flores RN is Primary Nurse. dwg 08:17 Patient moved to 5 dwg 08:18 Crys Donnelly DO is PHCP. jo4 08:18 Lacy Steiner MD is Attending Physician. jo4 08:19 Triage Initiated dwg 08:28 Patient visited by Crys Donnelly DO. jo4 08:30 Inserted saline lock: 20 gauge in right hand and blood collected. The patient tolerated ck1 the procedure well. 08:31 The patient / caregiver is instructed regarding the plan of care and ED course. ck1 08:46 Patient visited by Hyacinth Flores RN. ck1 08:57 Patient visited by Hyacinth Flores RN. ck1 09:18 Patient visited by Hyacinth Flores RN. ck1 09:30 Patient visited by Hyacinth Flores RN. ck1 09:30 [facility] Payment Agreement was scanned into [employer] and attached to record. jp5 09:44 Patient visited by Hyacinth Flores RN. ck1 09:59 CT ABD & PELVIS: No Contrast Returned. EDMS 10:15 Patient visited by Hyacinth Flores RN. ck1 11:06 Patient visited by Hyacinth Flores RN. ck1 11:32 Patient visited by Hyacinth Flores RN. ck1 11:53 Patient visited by Hyacinth Flores RN. ck1 12:18 Urinalysis Sent. mlb1 12:19 Patient visited by Hyacinth Flores RN. ck1 12:54 Patient visited by Curtis Sunshine, JUDIE. jlf 13:07 No procedures done that require assistance. ck1 13:25 Patient visited by Hyacinth Flores,ARMANDO. ck1 13:53 Patient visited by Curtis Sunshine, JUDIE. jlf 14:18 Patient visited by Hyacinth Flores RN. ck1 14:43 Bethel Navarrete is Referral Physician. jo4 14:50 Bethel Navarrete is Referral Physician. jo4 15:16 Discontinued lock intact, bleeding controlled, pressure dressing applied, No ck1 redness/swelling at site. 05/16 10:16 T-Sheet-- Draft Copy was scanned into [employer] and attached to record. gb Administered Medications: 05/15 08:57 Drug: morphine 4 mg [morphine 4 mg/mL intravenous cartridge (1 mL)] Route: IVP; Site: ck right hand; 09:30 Follow up: BP 180 / 89; Pulse 65 bpm; Resp 18 bpm; Temp 97.8 Oral; Pulse Ox 94% RA; ck1 Pain 6/10 Adult; Response: Confirmed pt not driving.; No Adverse Reaction; Pain is decreased 08:57 Drug: ketorolac 15 mg [ketorolac 30 mg/mL (1 mL) injection solution (0.5 mL)] Route: ck IVP; Site: right hand; 08:57 Drug: Ondansetron 4 mg [ondansetron HCl 2 mg/mL intravenous solution (2 mL)] Route: ck1 IVP; Site: right hand; 09:30 Drug: diphenhydrAMINE 12.5 mg [diphenhydramine 50 mg/mL injection solution (0.25 mL)] [facility] Route: IVP; Site: right hand; 11:36 Drug: morphine 4 mg [morphine 4 mg/mL intravenous cartridge (1 mL)] Route: IVP; Site: [facility] right hand; 14:00 Drug: cefTRIAXone 1 grams [ceftriaxone 1 gram solution for injection] Route: IVPB; kc3 Infused Over: 30 mins; Site: right hand; 14:37 Follow up: IV Status: Completed infusion ck1 14:00 Drug: morphine 4 mg [morphine 4 mg/mL intravenous cartridge (1 mL)] Route: IVP; Site: kc3 right hand; 14:29 Follow up: BP 123 / 60; Pulse 92 bpm; Resp 18 bpm; Pulse Ox 96% RA; Pain 2/10 Adult kc3 14:21 Not Given (Patient Refused): oxyCODONE-acetaminophen 5 mg-325 mg 1 tabs PO once ck1 Order Results: Lab Order: CBC; SPEC'M 05/15/16 08:29 Test: WHITE BLOOD COUNT; Value: 6.4; Range: 4.0-10.0; Units: K/mm3; Status: F Test: RED BLOOD COUNT; Value: 4.26; Range: 4.00-5.40; Units: M/mm3; Status: F Test: HEMOGLOBIN; Value: 13.8; Range: 12.0-16.0; Units: g/dl; Status: F Test: HEMATOCRIT; Value: 40.2; Range: 36.0-47.0; Units: %; Status: F Test: MEAN CORPUSCULAR VOLUME; Value: 94.5; Range: 80.0-96.0; Units: fl; Status: F Test: MEAN CORPUSCULAR HEMOGLOBIN; Value: 32.3; Range: 27.0-33.0; Units: pg; Status: F Test: MEAN CORPUSCULAR HGB CONC; Value: 34.2; Range: 32.0-36.5; Units: g/dl; Status: F Test: RED CELL DISTRIBUTION WIDTH; Value: 11.8; Range: 11.5-14.5; Units: %; Status: F Test: PLATELET COUNT, AUTOMATED; Value: 207; Range: 150-450; Units: k/mm3; Status: F Lab Order: BMP; SPEC'M 05/15/16 08:29 Test: GLUCOSE, FASTING; Value: 161; Range: 70-105; Abnormal: Above high normal; Units: MG/DL; Status: F Test: BLOOD UREA NITROGEN; Value: 10; Range: 7-18; Units: MG/DL; Status: F Test: CREATININE FOR GFR; Value: 1.00; Range: 0.55-1.02; Units: MG/DL; Status: F Test: GLOMERULAR FILTRATION RATE; Value: > 60.0; Range: >51; Status: F Test: SODIUM LEVEL; Value: 146; Range: 136-145; Abnormal: Above high normal; Units: MEQ/L; Status: F Test: POTASSIUM SERUM; Value: 3.8; Range: 3.5-5.1; Units: MEQ/L; Status: F Test: CHLORIDE LEVEL; Value: 108; Range: 98-107; Abnormal: Above high normal; Units: MEQ/L; Status: F Test: CARBON DIOXIDE LEVEL; Value: 26; Range: 21-32; Units: MEQ/L; Status: F Test: ANION GAP; Value: 12; Range: 8-16; Units: MEQ/L; Status: F Test: CALCIUM LEVEL; Value: 9.1; Range: 8.5-10.1; Units: MG/DL; Status: F Test Note: ; Units are mL/min/1.73 m2 Chronic Kidney Disease Staging per NKF: Stage I & II GFR >=60 Normal to Mildly Decreased Stage III GFR 30-59 Moderately Decreased Stage IV GFR 15-29 Severely Decreased Stage V GFR <15 Very Little GFR Left ESRD GFR <15 on LUMBER PILER Lab Order: Urinalysis; SPEC'M 05/15/16 12:17 Test: APPEARANCE, URINE; Value: TURBID; Range: CLEAR; Abnormal: Above high normal; Status: F Test: COLOR, URINE; Value: MAGED; Range: YELLOW; Status: F Test: PH,URINE; Value: 5.0; Range: 5.0-9.0; Units: UNITS; Status: F Test: SPECIFIC GRAVITY URINE AUTO; Value: 1.032; Range: 1.002-1.035; Status: F Test: PROTEIN, URINE AUTO; Value: 2+; Range: NEGATIVE; Abnormal: Above high normal; Units: mg/dL; Status: F Test: GLUCOSE, URINE (UA) AUTO; Value: NEGATIVE; Range: NEGATIVE; Units: mg/dL; Status: F Test: KETONE, URINE AUTO; Value: TRACE; Range: NEGATIVE; Abnormal: Above high normal; Units: mg/dL; Status: F Test: UROBILINOGEN, URINE AUTO; Value: 0.2; Range: 0.0-2.0; Units: mg/dL; Status: F Test: BILIRUBIN, URINE AUTO; Value: NEGATIVE; Range: NEGATIVE; Status: F Test: NITRITE, URINE AUTO; Value: NEGATIVE; Range: NEGATIVE; Status: F Test: LEUKOCYTE ESTERASE, URINE AUTO; Value: TRACE; Range: NEGATIVE; Abnormal: Above high normal; Status: F Test: BLOOD, URINE BLOOD; Value: 3+; Range: NEGATIVE; Abnormal: Above high normal; Status: F Test: WBC, URINE AUTO; Value: 58; Range: 0-3; Abnormal: Above high normal; Units: /HPF; Status: F Test: RBC, URINE AUTO; Value: TNTC; Range: 0-3; Abnormal: Above high normal; Units: /HPF; Status: F Test: BACTERIA, URINE AUTO; Value: 2+; Range: NEGATIVE; Abnormal: Above high normal; Status: F Test: SQUAMOUS EPITHELIAL CELL UR AU; Value: 2; Range: 0-6; Units: /HPF; Status: F Test: MUCUS, URINE; Value: LARGE; Range: NEGATIVE; Status: F Test: HYALINE CAST, URINE AUTO; Value: 0; Range: 0-1; Units: /LPF; Status: F Test: AMORPHOUS SEDIMENT; Value: MODERATE; Range: NEGATIVE; Abnormal: Above high normal; Status: F Radiology Order: CT ABD & PELVIS: No Contrast Test: CT ABD & PELVIS: No Contrast REASON FOR EXAMINATION: Left flank pain; Clinical: Left flank pain.; ; Comparison: 05/17/2010.; ; Findings:; Mild to moderate acute left-sided obstructive uropathy is appreciated with; perinephric and periureteral stranding as well as hydroureteronephrosis secondary; to a 4 mm calculus in the distal left ureter (images 130 - 131). The right; kidney/ureter and bladder appear normal and no further urinary tract calculi are; identified.; ; Liver, spleen, pancreas, bilateral adrenal glands are normal for noncontrast; examination. The patient is status post cholecystectomy. The enteric system is; without obstruction or acute inflammatory process. No pelvic fluid or ascites.; No free air. No adenopathy. Pelvis demonstrates collapsed normal bladder and; age-appropriate uterus/adnexa. Atherosclerotic changes of the aorta and branch; vessels noted without aneurysm. Surrounding musculoskeletal structures; demonstrate degenerative changes without focal osseous abnormality. Lung bases; clear.; ; Impression:; Acute mild to moderate left-sided obstructive uropathy with a 4 mm obstructing; calculus in the distal left ureter.; ; ; Signed by; Marvin Narayan MD 05/15/2016 09:32 A; Outcome: 13:07 Discharge Assessment: patient administered narcotics - yes. Pt provided with safe ck1 discharge. CT Study completed. 14:47 Discharge ordered by Provider. jo4 14:50 Discharge ordered by Provider. jo4 15:16 The following High Risk Discharge criteria are identified: None. Discharged to home ck1 ambulatory, with significant other. Condition: stable. Discharge instructions given to patient, Instructed on discharge instructions, follow up and referral plans. medication usage, Demonstrated understanding of instructions, medications, Pt was receptive of discharge instructions/ teaching. Property :Personal belongings accompany Pt. 15:19 Patient left the ED. ck1 Signatures: Dispatcher [employer] EDMS Iván Beth, RN RN dwLuz Romero, Branden Reg Mike Morse RN RN mlb1 Hyacinth FloresRN RN ck1 Riaz Kaur mm15 Curtis Sunshine, JUDIE CLIENT EXPERIENCE CONSULTANT jlf Matthew Dudley jp5 Deysi Garcia,ARMANDO RN kc3 Crys Donnelly DO DO jo4 Chart Complete MTDRoselia
== END 2016-05-15 15:19 | disposition home or self-care (01) ==
LOC: M ED 08:13
DX: N20.1 Calculus of ureter (principal); K21.9 Gastro-esophageal reflux disease without esophagitis; E78.00 Pure hypercholesterolemia, unspecified; Z87.891 Personal history of nicotine dependence; Z79.899 Other long term (current) drug therapy; Z88.8 Allergy status to other drugs, medicaments and biological substances
CPT/HCPCS: 36415; 74176; 80048; 81001; 85027; 96365; 96375; 96376; 99284; J0696; J1200; J1885; J2405

== ENCOUNTER 2016-05-17 09:32 | Emergency (ER) | payer OTHER ==
[2016-05-17] MEDS ORDERED: MORPHINE 4 MG/ML 1ML SYRINGE As Ordered ONE (10:27)
[2016-05-17] MEDS ORDERED: METOCLOPRAMIDE INJ 10MG/2ML VIAL (J2765) As Ordered ONE (10:27)
[2016-05-17 10:55] LABS: BASO % 0.2 % (0.0-1.0); EOS # 0.1 K/mm3 (0.0-0.50); EOS % 0.7 % (0.0-3.0); LARGE UNSTAINED CELL # 0.1 K/mm3 (0.0-0.4); LYMPH # 1.8 K/mm3 (1.5-4.5); MEAN CORPUSCULAR HEMOGLOBIN 31.5 pg (27.0-33.0); MEAN CORPUSCULAR HGB CONC 33.5 g/dl (32.0-36.5); MONO # 0.6 K/mm3 (0.0-0.8); MONO % 5.3 % (0.0-5.0); NEUTROPHILS # 8.6 K/mm3 (1.8-7.7); NEUTROPHILS % 76.9 % (36.0-66.0); PLATELET COUNT, AUTOMATED 179 k/mm3 (150-450); RED CELL DISTRIBUTION WIDTH 11.9 % (11.5-14.5); WHITE BLOOD COUNT 11.2 K/mm3 (4.0-10.0)
[2016-05-17 11:12] LABS: ANION GAP 8 MEQ/L (8-16); BLOOD UREA NITROGEN 9 MG/DL (7-18); CALCIUM LEVEL 8.6 MG/DL (8.5-10.1); CARBON DIOXIDE LEVEL 28 MEQ/L (21-32); CHLORIDE LEVEL 105 MEQ/L (98-107); CREATININE FOR GFR 0.89 MG/DL (0.55-1.02); GLOMERULAR FILTRATION RATE > 60.0 (>51); GLUCOSE, FASTING 105 MG/DL (70-105); POTASSIUM SERUM 3.6 MEQ/L (3.5-5.1); SODIUM LEVEL 141 MEQ/L (136-145)
--- NOTE | 2016-05-17 11:34 | REP ---
Clinical: Recent acute left obstructive uropathy. Technique: Real time kwon scale ultrasound examination using curved array transducer. Findings: The bilateral kidneys are normal in contour, size, echogenicity and reniform shape without hydronephrosis, nephrolithiasis, cystic or renal mass lesion. No perinephric fluid collections are identified. The bladder is unremarkable and bilateral ureteral jets are identified. Right kidney measures 12.6 x 6.2 x 5.6 cm. Left kidney measures 12.6 x 5.2 x 6.8 cm. Impression: Normal renal ultrasound. Signed by Marvin Narayan MD 05/17/2016 11:26 A
--- NOTE | 2016-05-17 12:04 | EDDOCDS ---
Physician Documentation [facility] Name: Stacie Canales Age: 55 yrs Sex: Female : 1960 Arrival Date: 05/17/2016 Time: 09:32 Bed I7 / 29 Private MD: Bethel Navarrete M.D. Disposition: 05/17/16 11:55 Discharged to Home/Self Care. Impression: Migraine, unspecified, not intractable, Nausea, Urinary tract infection, site not specified - with left flank pain, Unspecified renal colic - left. - Condition is Stable. - Discharge Instructions: Kidney Stones, Nausea and Vomiting, Ureteral Colic, Urinary Tract Infection. - Prescriptions for Reglan 10 mg Oral Tablet - take 1 tablet by ORAL route every 6 hours As needed take 30 minutes before meals and at bedtime; 20 tablet. Macrobid 100 mg Oral Capsule - take 100 milligrams by ORAL route every 12 hours for 7 days; 14 capsule. Flomax 0.4 mg Oral Capsule, Sust. Release 24 hr - take 1 capsule by ORAL route once daily 1/2 hour following the same meal each day; 14 capsule. - Medication Reconciliation, Local Pharmacy Hours form. - Follow up: Emergency Department; When: As needed; Reason: Worsening of conditions. Follow up: Pierce Reyna; When: Call to arrange an appointment; Reason: Wound/Symptom Recheck, Further diagnostic work-up, Recheck today's complaints, Continuance of care, To establish care. - Problem is new. - Symptoms have improved. Historical: - Allergies: Codeine Sulfate (Vomit); Toradol (Hives); - Home Meds: 1. Nexium Oral 1 cap once daily 2. Tricor Oral 1 cap once daily 3. Zofran (as hydrochloride) 4 mg Oral tab every 8 hours as needed 4. Percocet 5-325 mg Oral tab 1 tab every 6 hours as needed 5. Cipro 500 mg Oral tab 1 tab every 12 hours - PMHx: GERD; Hypercholesterolemia; UTI; Kidney stones; - PSHx: Appendectomy; Cholecystectomy; ectopic; bilateral thumb surgery; - Social history: Smoking status: Patient states former smoker of tobacco. No barriers to communication noted, The patient speaks fluent Bulgarian. - Family history: Not pertinent. - : The pt / caregiver states he / she is not on anticoagulants. Home medication list is obtained from the patient, [employer] import data. - Exposure Risk Screening:: None identified. Vital Signs: 05/17 09:33 BP 188 / 89; Pulse 70; Resp 18; Temp 98.8(O); Pulse Ox 98% ; Weight 77.11 kg / 170 lbs ct3 (R); Height 5 ft. 3 in. (160.02 cm) (R); Pain 5/10; 11:46 Pain 1/10; kr3 11:47 BP 133 / 63; Pulse 92; Resp 16; Pulse Ox 96% on R/A; Pain 1/; kr3 09:33 Body Mass Index 30.11 (77.11 kg, 160.02 cm) ct3 MDM: 10:12 Financial registration complete. lg 10:17 ED course: PT WAS SEEN IN THE ER ON 05/15/16 FOR LEFT FLANK PAIN AND WAS DX'D WITH LEFT dt4 URETERAL CALCULUS, 4MM, OBSTRUCTING WITH MILD-MODERATE OBSTRUCTIVE UROPATHY. PT STATES WAS GIVEN MEDS FOR PAIN AND ANTIBIOTIC AT THAT TIME. PT STATES THE ANTIBIOTIC (CIPRO) MADE HER VOMIT EVERY TIME SHE TOOK IT. SHE CALLED THE ER YESTERDAY AND WAS ADVISED ZOFRAN WAS CALLED IN FOR THOSE SYMPTOMS. PT STATES TOOK THE ZOFRAN AND NOW HAS A MIGRAINE. STILL HAVING LEFT FLANK PAIN, NAUSEA AND HEADACHE AT THIS TIME. . 10:24 IV Saline Lock ordered. dt4 10:24 NS 0.9% 500 ml IV at bolus once ordered. dt4 10:24 morphine 4 mg IVP once ordered. dt4 10:24 Metoclopramide 10 mg IV at 40 mg/hr once over 15 mins ordered. dt4 10:26 CBC with Diff Ordered. EDMS 10:26 Basic Metabolic Profile Ordered. EDMS 10:26 CRP Ordered. EDMS 10:26 Urinalysis Ordered. EDMS 10:26 Urine Culture Ordered. EDMS 10:26 US Renal Ordered. EDMS 11:52 [facility] [place] was scanned into [employer] and attached to record. lg Administered Medications: 10:35 Drug: morphine 4 mg [morphine 4 mg/mL intravenous cartridge (1 mL)] Route: IVP; Site: dsf right hand; 11:46 Follow up: Pain 05/15 Adult; Response: Pain is decreased kr3 10:35 Drug: Metoclopramide 10 mg [metoclopramide 5 mg/mL injection solution] Route: IV; Rate: dsf 40 mg/hr; Infused Over: 15 mins; Site: right hand; 11:00 Follow up: IV Status: Completed infusion; IV Intake: 10ml dsf 10:36 Drug: NS 0.9% 500 ml [sodium chloride 0.9 % injection solution] Route: IV; Rate: bolus; dsf Site: right hand; 11:47 Follow up: BP 133 / 63; Pulse 92 bpm; Resp 16 bpm; Pulse Ox 96% RA; Pain 05/15 Adult; IV kr3 Status: Completed infusion; IV Intake: 500ml Signatures: Dispatcher [employer] EDLiza Dorman RN RN kcs Zahida Mcadams, Branden Reg lg Julisa Hernández RN RN kr3 Fariba Adam, PATrC PA-C elisa4 Alesha Cuevas RN dsf The chart was reviewed and I authenticate all verbal orders and agree with the evaluation and treatment provided.Attachments: 11:52 [facility] Payment Agreement lg MTDD
--- NOTE | 2016-05-17 12:04 | EDDOCDS ---
Nurse's Notes [facility] Name: Stacie Canales Age: 55 yrs Sex: Female : 1960 Arrival Date: 05/17/2016 Time: 09:32 Bed I7 / 29 Private MD: Bethel Navarrete M.D. Diagnosis: Migraine, unspecified, not intractable;Nausea;Urinary tract infection, site not specified-with left flank pain;Unspecified renal colic-left Presentation: 05/17 09:42 Presenting complaint: Patient states: she was seen here on 05/14 for bladder infection kcs and kidney stone - returning because the meds are making her sicker - pain meds made her nauseated and anti-emetic called in for her yesterday - now the meds are giving her a migraine. still with left flank pain. Adult Sepsis Screening: The patient does not have new or worsening altered mentation. Patient's respiratory rate is less than 22. Systolic blood pressure is greater than 100. Patient has a qSOFA score of 0- Negative Sepsis Screen. Suicide/Homicide risk assessment- the patient denies having any suicidal and/or homicidal ideations and does not present with any other emotional, behavioral or mental health complaints. Status: Patient is not a telephone service adviser or dependent. Transition of care: patient was not received from another setting of care. 09:42 Acuity: MAYRA Level 3 kcs 09:42 Method Of Arrival: Walkin/Carried/Asstd kcs Triage Assessment: 09:45 General: Appears uncomfortable, well developed, well nourished, well groomed, Behavior kcs is cooperative, pleasant. Pain: Location: left flank and head Pain currently is 6 out of 10 on a pain scale. HIV screening NA for this visit Offered previously. Neurological: Level of Consciousness is awake, alert. Respiratory: Airway is patent Respiratory effort is even, unlabored, Respiratory pattern is regular, symmetrical. Derm: Skin is intact, is healthy with good turgor, Skin is dry, Skin is normal. Historical: - Allergies: Codeine Sulfate (Vomit); Toradol (Hives); - Home Meds: 1. Nexium Oral 1 cap once daily 2. Tricor Oral 1 cap once daily 3. Zofran (as hydrochloride) 4 mg Oral tab every 8 hours as needed 4. Percocet 5-325 mg Oral tab 1 tab every 6 hours as needed 5. Cipro 500 mg Oral tab 1 tab every 12 hours - PMHx: GERD; Hypercholesterolemia; UTI; Kidney stones; - PSHx: Appendectomy; Cholecystectomy; ectopic; bilateral thumb surgery; - Social history: Smoking status: Patient states former smoker of tobacco. No barriers to communication noted, The patient speaks fluent Gambian. - Family history: Not pertinent. - : The pt / caregiver states he / she is not on anticoagulants. Home medication list is obtained from the patient, [employer] import data. - Exposure Risk Screening:: None identified. Screenin:42 Screening information is obtained from the patient. Fall risk: No risks identified. kr3 Assistance ADL's: requires no assistance with activities of daily living. Abuse/DV Screen: The patient / caregiver reports he/she is: not in a situation that causes fear, pain or injury. Nutritional screening: No deficits noted. Advance Directives: Currently, there is no health care proxy. home support is adequate. Assessment: 10:41 General: Appears uncomfortable, Behavior is cooperative. Pain: Location: headache and kr3 left flank. Neurological: Reports headache. Respiratory: Respiratory effort is even, unlabored. GI: Reports nausea, vomiting. Derm: Skin is pink, warm & dry. 10:59 General: Appears in no apparent distress, comfortable, Behavior is appropriate for age, dsf cooperative. Pain: Location: head Pain currently is 1 out of 10 on a pain scale. Neurological: Level of Consciousness is awake, alert. Cardiovascular: No deficits noted. Respiratory: No deficits noted. GI: Reports nausea is better. 10:59 Derm: Skin is pink, warm & dry. dsf 11:47 Reassessment: Patient states feeling better. headache pain 1/10 and back pain 2/10. kr3 Vital Signs: 09:33 BP 188 / 89; Pulse 70; Resp 18; Temp 98.8(O); Pulse Ox 98% ; Weight 77.11 kg (R); ct3 Height 5 ft. 3 in. (160.02 cm) (R); Pain 5/10; 11:46 Pain 1/10; kr3 11:47 BP 133 / 63; Pulse 92; Resp 16; Pulse Ox 96% on R/A; Pain 1/10; kr3 09:33 Body Mass Index 30.11 (77.11 kg, 160.02 cm) ct3 Vitals: 09:33 Log In Time: May 17, 2016 at 09:30. ct3 ED Course: 09:33 Patient visited by Nia Nicholson PCA. ct3 09:33 Bethel Navarrete is Private Physician. ct3 09:33 Patient moved to Waiting ct3 09:34 Patient moved to Pre RCE ct3 09:44 Triage Initiated kcs 09:46 Patient moved to Triage 2 kcs 09:55 [facility] dt4 09:55 Gautam Vann MD is Attending Physician. dt4 09:55 Patient visited by Fariba Adam PA-C. dt4 10:17 Patient moved to I mk4 10:40 Patient visited by Julisa Hernández RN. kr3 10:40 Urine Culture Sent. kr3 10:40 Urinalysis Sent. kr3 10:40 CRP Sent. kr3 10:40 Basic Metabolic Profile Sent. kr3 10:40 CBC with Diff Sent. kr3 10:42 Inserted saline lock: 20 gauge in right hand The patient tolerated the procedure well. kr3 11:00 Patient visited by Alesha Cuevas RN. dsf 11:00 Patient moved to Ultrasound am10 11:16 Patient moved to am10 11:41 US Renal Returned. EDMS 11:47 Patient visited by Fariba Adam PA-C. dt4 11:52 [facility] Payment Agreement was scanned into [employer] and attached to record. lg 11:54 Pierce Reyna is Referral Physician. dt4 11:57 The patient / caregiver is instructed regarding the plan of care and ED course. kr3 Accompanied by Family Member, Patient has correct armband on for positive identification. Placed in gown. Bed in low position. Call light in reach. Side rails up X 1. 11:58 Discontinued lock intact, bleeding controlled, pressure dressing applied, No kr3 redness/swelling at site. No procedures done that require assistance. Administered Medications: 10:35 Drug: morphine 4 mg [morphine 4 mg/mL intravenous cartridge (1 mL)] Route: IVP; Site: dsf right hand; 11:46 Follow up: Pain 05/15 Adult; Response: Pain is decreased kr3 10:35 Drug: Metoclopramide 10 mg [metoclopramide 5 mg/mL injection solution] Route: IV; Rate: dsf 40 mg/hr; Infused Over: 15 mins; Site: right hand; 11:00 Follow up: IV Status: Completed infusion; IV Intake: 10ml dsf 10:36 Drug: NS 0.9% 500 ml [sodium chloride 0.9 % injection solution] Route: IV; Rate: bolus; dsf Site: right hand; 11:47 Follow up: BP 133 / 63; Pulse 92 bpm; Resp 16 bpm; Pulse Ox 96% RA; Pain 05/15 Adult; IV kr3 Status: Completed infusion; IV Intake: 500ml Intake: 11:00 IV: 10.00ml; Total: 10.00ml. dsf 11:47 IV: 500.00ml; Total: 510.00ml. kr3 Order Results: Lab Order: CBC with Diff; SPEC'M 05/17/16 10:37 Test: WHITE BLOOD COUNT; Value: 11.2; Range: 4.0-10.0; Abnormal: Above high normal; Units: K/mm3; Status: F Test: RED BLOOD COUNT; Value: 4.09; Range: 4.00-5.40; Units: M/mm3; Status: F Test: HEMOGLOBIN; Value: 12.9; Range: 12.0-16.0; Units: g/dl; Status: F Test: HEMATOCRIT; Value: 38.5; Range: 36.0-47.0; Units: %; Status: F Test: MEAN CORPUSCULAR VOLUME; Value: 94.0; Range: 80.0-96.0; Units: fl; Status: F Test: MEAN CORPUSCULAR HEMOGLOBIN; Value: 31.5; Range: 27.0-33.0; Units: pg; Status: F Test: MEAN CORPUSCULAR HGB CONC; Value: 33.5; Range: 32.0-36.5; Units: g/dl; Status: F Test: RED CELL DISTRIBUTION WIDTH; Value: 11.9; Range: 11.5-14.5; Units: %; Status: F Test: PLATELET COUNT, AUTOMATED; Value: 179; Range: 150-450; Units: k/mm3; Status: F Test: NEUTROPHILS %; Value: 76.9; Range: 36.0-66.0; Abnormal: Above high normal; Units: %; Status: F Test: LYMPH %; Value: 16.0; Range: 24.0-44.0; Abnormal: Below low normal; Units: %; Status: F Test: MONO %; Value: 5.3; Range: 0.0-5.0; Abnormal: Above high normal; Units: %; Status: F Test: EOS %; Value: 0.7; Range: 0.0-3.0; Units: %; Status: F Test: BASO %; Value: 0.2; Range: 0.0-1.0; Units: %; Status: F Test: LARGE UNSTAINED CELL %; Value: 1.0; Range: 0.0-4.0; Units: %; Status: F Test: NEUTROPHILS #; Value: 8.6; Range: 1.8-7.7; Abnormal: Above high normal; Units: K/mm3; Status: F Test: LYMPH #; Value: 1.8; Range: 1.5-4.5; Units: K/mm3; Status: F Test: MONO #; Value: 0.6; Range: 0.0-0.8; Units: K/mm3; Status: F Test: EOS #; Value: 0.1; Range: 0.0-0.50; Units: K/mm3; Status: F Test: BASO #; Value: 0.0; Range: 0.0-0.2; Units: K/mm3; Status: F Test: LARGE UNSTAINED CELL #; Value: 0.1; Range: 0.0-0.4; Units: K/mm3; Status: F Lab Order: Basic Metabolic Profile; SPEC'M 05/17/16 10:37 Test: GLUCOSE, FASTING; Value: 105; Range: 70-105; Units: MG/DL; Status: F Test: BLOOD UREA NITROGEN; Value: 9; Range: 7-18; Units: MG/DL; Status: F Test: CREATININE FOR GFR; Value: 0.89; Range: 0.55-1.02; Units: MG/DL; Status: F Test: GLOMERULAR FILTRATION RATE; Value: > 60.0; Range: >51; Status: F Test: SODIUM LEVEL; Value: 141; Range: 136-145; Units: MEQ/L; Status: F Test: POTASSIUM SERUM; Value: 3.6; Range: 3.5-5.1; Units: MEQ/L; Status: F Test: CHLORIDE LEVEL; Value: 105; Range: 98-107; Units: MEQ/L; Status: F Test: CARBON DIOXIDE LEVEL; Value: 28; Range: 21-32; Units: MEQ/L; Status: F Test: ANION GAP; Value: 8; Range: 8-16; Units: MEQ/L; Status: F Test: CALCIUM LEVEL; Value: 8.6; Range: 8.5-10.1; Units: MG/DL; Status: F Test Note: ; Units are mL/min/1.73 m2 Chronic Kidney Disease Staging per NKF: Stage I & II GFR >=60 Normal to Mildly Decreased Stage III GFR 30-59 Moderately Decreased Stage IV GFR 15-29 Severely Decreased Stage V GFR <15 Very Little GFR Left ESRD GFR <15 on HEEL BOOM OPERATOR Lab Order: CRP; SPEC'M 05/17/16 10:37 Test: C REACTIVE PROTEIN QUANTITATIV; Value: 3.63; Range: 0.00-0.30; Abnormal: Above high normal; Units: MG/DL; Status: F Lab Order: Urinalysis; SPEC'M 05/17/16 10:38 Test: APPEARANCE, URINE; Value: CLEAR; Range: CLEAR; Status: F Test: COLOR, URINE; Value: YELLOW; Range: YELLOW; Status: F Test: PH,URINE; Value: 6.0; Range: 5.0-9.0; Units: UNITS; Status: F Test: SPECIFIC GRAVITY URINE AUTO; Value: 1.008; Range: 1.002-1.035; Status: F Test: PROTEIN, URINE AUTO; Value: NEGATIVE; Range: NEGATIVE; Units: mg/dL; Status: F Test: GLUCOSE, URINE (UA) AUTO; Value: NEGATIVE; Range: NEGATIVE; Units: mg/dL; Status: F Test: KETONE, URINE AUTO; Value: NEGATIVE; Range: NEGATIVE; Units: mg/dL; Status: F Test: UROBILINOGEN, URINE AUTO; Value: 0.2; Range: 0.0-2.0; Units: mg/dL; Status: F Test: BILIRUBIN, URINE AUTO; Value: NEGATIVE; Range: NEGATIVE; Status: F Test: NITRITE, URINE AUTO; Value: NEGATIVE; Range: NEGATIVE; Status: F Test: LEUKOCYTE ESTERASE, URINE AUTO; Value: TRACE; Range: NEGATIVE; Abnormal: Above high normal; Status: F Test: BLOOD, URINE BLOOD; Value: 3+; Range: NEGATIVE; Abnormal: Above high normal; Status: F Test: WBC, URINE AUTO; Value: 4; Range: 0-3; Abnormal: Above high normal; Units: /HPF; Status: F Test: RBC, URINE AUTO; Value: 6; Range: 0-3; Abnormal: Above high normal; Units: /HPF; Status: F Test: BACTERIA, URINE AUTO; Value: 1+; Range: NEGATIVE; Abnormal: Above high normal; Status: F Test: SQUAMOUS EPITHELIAL CELL UR AU; Value: 3; Range: 0-6; Units: /HPF; Status: F Test: MUCUS, URINE; Value: SMALL; Range: NEGATIVE; Status: F Test: HYALINE CAST, URINE AUTO; Value: 0; Range: 0-1; Units: /LPF; Status: F Radiology Order: US Renal Test: US Renal REASON FOR EXAMINATION: RECENT LEFT URETERAL STONE; Clinical: Recent acute left obstructive uropathy.; ; Technique: Real time kwon scale ultrasound examination using curved array; transducer.; ; Findings:; The bilateral kidneys are normal in contour, size, echogenicity and reniform; shape without hydronephrosis, nephrolithiasis, cystic or renal mass lesion. No; perinephric fluid collections are identified. The bladder is unremarkable and; bilateral ureteral jets are identified.; ; Right kidney measures 12.6 x 6.2 x 5.6 cm.; Left kidney measures 12.6 x 5.2 x 6.8 cm.; ; Impression:; Normal renal ultrasound.; ; ; Signed by; Marivn Narayan MD 05/17/2016 11:26 A; Outcome: 11:47 Ultrasound Study completed. kr3 11:55 Discharge ordered by Provider. dt4 12:02 Discharge Assessment: patient administered narcotics - no. The following High Risk kr3 Discharge criteria are identified: None. Discharged to home ambulatory, with family. Condition: stable. Discharge instructions given to patient, Instructed on discharge instructions, follow up and referral plans. medication usage, Demonstrated understanding of instructions, medications, Pt was receptive of discharge instructions/ teaching. Prescriptions given X 3. Property sent home with patient. 12:02 Patient left the ED. kr3 Signatures: Dispatcher [employer] Liza Prieto, RN RN Zahida Suarez, Julisa Lawrence lg, RN RN kr3 Thais Robert am10 Lyn, Nia, MEDICAL BILLING INSTRUCTOR MEDICAL BILLING INSTRUCTOR ct3 Alesha Cuevas RN RN Rosy Sarkar RN RN mk4 Fariba Adam, PA-C PA-C dt4 MTDD
--- NOTE | 2016-05-19 13:04 | EDDOCDS ---
Physician Documentation [facility] Name: Stacie Canales Age: 55 yrs Sex: Female : 1960 Arrival Date: 05/17/2016 Time: 09:32 Bed I7 / 29 Private MD: Bethel Navarrete M.D. Disposition: 05/17/16 11:55 Discharged to Home/Self Care. Impression: Migraine, unspecified, not intractable, Nausea, Urinary tract infection, site not specified - with left flank pain, Unspecified renal colic - left. - Condition is Stable. - Discharge Instructions: Kidney Stones, Nausea and Vomiting, Ureteral Colic, Urinary Tract Infection. - Prescriptions for Reglan 10 mg Oral Tablet - take 1 tablet by ORAL route every 6 hours As needed take 30 minutes before meals and at bedtime; 20 tablet. Macrobid 100 mg Oral Capsule - take 100 milligrams by ORAL route every 12 hours for 7 days; 14 capsule. Flomax 0.4 mg Oral Capsule, Sust. Release 24 hr - take 1 capsule by ORAL route once daily 1/2 hour following the same meal each day; 14 capsule. - Medication Reconciliation, Local Pharmacy Hours form. - Follow up: Emergency Department; When: As needed; Reason: Worsening of conditions. Follow up: Pierce Reyna; When: Call to arrange an appointment; Reason: Wound/Symptom Recheck, Further diagnostic work-up, Recheck today's complaints, Continuance of care, To establish care. - Problem is new. - Symptoms have improved. Historical: - Allergies: Codeine Sulfate (Vomit); Toradol (Hives); - Home Meds: 1. Nexium Oral 1 cap once daily 2. Tricor Oral 1 cap once daily 3. Zofran (as hydrochloride) 4 mg Oral tab every 8 hours as needed 4. Percocet 5-325 mg Oral tab 1 tab every 6 hours as needed 5. Cipro 500 mg Oral tab 1 tab every 12 hours - PMHx: GERD; Hypercholesterolemia; UTI; Kidney stones; - PSHx: Appendectomy; Cholecystectomy; ectopic; bilateral thumb surgery; - Social history: Smoking status: Patient states former smoker of tobacco. No barriers to communication noted, The patient speaks fluent Khmer. - Family history: Not pertinent. - : The pt / caregiver states he / she is not on anticoagulants. Home medication list is obtained from the patient, [employer] import data. - Exposure Risk Screening:: None identified. Vital Signs: 05/17 09:33 BP 188 / 89; Pulse 70; Resp 18; Temp 98.8(O); Pulse Ox 98% ; Weight 77.11 kg / 170 lbs ct3 (R); Height 5 ft. 3 in. (160.02 cm) (R); Pain 5/10; 11:46 Pain 1/10; kr3 11:47 BP 133 / 63; Pulse 92; Resp 16; Pulse Ox 96% on R/A; Pain 1/10; kr3 09:33 Body Mass Index 30.11 (77.11 kg, 160.02 cm) ct3 MDM: 10:12 Financial registration complete. lg 10:17 ED course: PT WAS SEEN IN THE ER ON 05/15/16 FOR LEFT FLANK PAIN AND WAS DX'D WITH LEFT dt4 URETERAL CALCULUS, 4MM, OBSTRUCTING WITH MILD-MODERATE OBSTRUCTIVE UROPATHY. PT STATES WAS GIVEN MEDS FOR PAIN AND ANTIBIOTIC AT THAT TIME. PT STATES THE ANTIBIOTIC (CIPRO) MADE HER VOMIT EVERY TIME SHE TOOK IT. SHE CALLED THE ER YESTERDAY AND WAS ADVISED ZOFRAN WAS CALLED IN FOR THOSE SYMPTOMS. PT STATES TOOK THE ZOFRAN AND NOW HAS A MIGRAINE. STILL HAVING LEFT FLANK PAIN, NAUSEA AND HEADACHE AT THIS TIME. . 10:24 IV Saline Lock ordered. dt4 10:24 NS 0.9% 500 ml IV at bolus once ordered. dt4 10:24 morphine 4 mg IVP once ordered. dt4 10:24 Metoclopramide 10 mg IV at 40 mg/hr once over 15 mins ordered. dt4 10:26 CBC with Diff Ordered. EDMS 10:26 Basic Metabolic Profile Ordered. EDMS 10:26 CRP Ordered. EDMS 10:26 Urinalysis Ordered. EDMS 10:26 Urine Culture Ordered. EDMS 10:26 US Renal Ordered. EDMS 11:52 [facility] Payment Agreement was scanned into [employer] and attached to record. lg 13:47 T-Sheet-- Draft Copy was scanned into [employer] and attached to record. gb 13:48 Radiology Report was scanned into [employer] and attached to record. gb Administered Medications: 10:35 Drug: morphine 4 mg [morphine 4 mg/mL intravenous cartridge (1 mL)] Route: IVP; Site: dsf right hand; 11:46 Follow up: Pain 1/10 Adult; Response: Pain is decreased kr3 10:35 Drug: Metoclopramide 10 mg [metoclopramide 5 mg/mL injection solution] Route: IV; Rate: dsf 40 mg/hr; Infused Over: 15 mins; Site: right hand; 11:00 Follow up: IV Status: Completed infusion; IV Intake: 10ml dsf 10:36 Drug: NS 0.9% 500 ml [sodium chloride 0.9 % injection solution] Route: IV; Rate: bolus; dsf Site: right hand; 11:47 Follow up: BP 133 / 63; Pulse 92 bpm; Resp 16 bpm; Pulse Ox 96% RA; Pain 05/15 Adult; IV kr3 Status: Completed infusion; IV Intake: 500ml Signatures: Dispatcher [employer] EDLiza Dorman, RN RN [facility] Luz Marina, Reg Reg gb Zahida Mcadams, Reg Reg lg Julisa Hernández RN RN kr3 Fariba Adam, PA-Josefa PA-Josefa pérez4 Alesha Cuevas RN dsf The chart was reviewed and I authenticate all verbal orders and agree with the evaluation and treatment provided.Attachments: 11:52 [facility] Payment Agreement lg 13:47 T-Sheet-- Draft Copy Chart Complete MTDD
--- NOTE | 2016-05-19 13:04 | EDDOCDS ---
Physician Documentation [facility] Name: Stacie Canales Age: 55 yrs Sex: Female : 1960 Arrival Date: 05/17/2016 Time: 09:32 Bed I7 / 29 Private MD: Bethel Navarrete M.D. Disposition: 05/17/16 11:55 Discharged to Home/Self Care. Impression: Migraine, unspecified, not intractable, Nausea, Urinary tract infection, site not specified - with left flank pain, Unspecified renal colic - left. - Condition is Stable. - Discharge Instructions: Kidney Stones, Nausea and Vomiting, Ureteral Colic, Urinary Tract Infection. - Prescriptions for Reglan 10 mg Oral Tablet - take 1 tablet by ORAL route every 6 hours As needed take 30 minutes before meals and at bedtime; 20 tablet. Macrobid 100 mg Oral Capsule - take 100 milligrams by ORAL route every 12 hours for 7 days; 14 capsule. Flomax 0.4 mg Oral Capsule, Sust. Release 24 hr - take 1 capsule by ORAL route once daily 1/2 hour following the same meal each day; 14 capsule. - Medication Reconciliation, Local Pharmacy Hours form. - Follow up: Emergency Department; When: As needed; Reason: Worsening of conditions. Follow up: Pierce Reyna; When: Call to arrange an appointment; Reason: Wound/Symptom Recheck, Further diagnostic work-up, Recheck today's complaints, Continuance of care, To establish care. - Problem is new. - Symptoms have improved. Historical: - Allergies: Codeine Sulfate (Vomit); Toradol (Hives); - Home Meds: 1. Nexium Oral 1 cap once daily 2. Tricor Oral 1 cap once daily 3. Zofran (as hydrochloride) 4 mg Oral tab every 8 hours as needed 4. Percocet 5-325 mg Oral tab 1 tab every 6 hours as needed 5. Cipro 500 mg Oral tab 1 tab every 12 hours - PMHx: GERD; Hypercholesterolemia; UTI; Kidney stones; - PSHx: Appendectomy; Cholecystectomy; ectopic; bilateral thumb surgery; - Social history: Smoking status: Patient states former smoker of tobacco. No barriers to communication noted, The patient speaks fluent Korean. - Family history: Not pertinent. - : The pt / caregiver states he / she is not on anticoagulants. Home medication list is obtained from the patient, [employer] import data. - Exposure Risk Screening:: None identified. Vital Signs: 05/17 09:33 BP 188 / 89; Pulse 70; Resp 18; Temp 98.8(O); Pulse Ox 98% ; Weight 77.11 kg / 170 lbs ct3 (R); Height 5 ft. 3 in. (160.02 cm) (R); Pain 5/10; 11:46 Pain 1/10; kr3 11:47 BP 133 / 63; Pulse 92; Resp 16; Pulse Ox 96% on R/A; Pain 1/10; kr3 09:33 Body Mass Index 30.11 (77.11 kg, 160.02 cm) ct3 MDM: 10:12 Financial registration complete. lg 10:17 ED course: PT WAS SEEN IN THE ER ON 05/15/16 FOR LEFT FLANK PAIN AND WAS DX'D WITH LEFT dt4 URETERAL CALCULUS, 4MM, OBSTRUCTING WITH MILD-MODERATE OBSTRUCTIVE UROPATHY. PT STATES WAS GIVEN MEDS FOR PAIN AND ANTIBIOTIC AT THAT TIME. PT STATES THE ANTIBIOTIC (CIPRO) MADE HER VOMIT EVERY TIME SHE TOOK IT. SHE CALLED THE ER YESTERDAY AND WAS ADVISED ZOFRAN WAS CALLED IN FOR THOSE SYMPTOMS. PT STATES TOOK THE ZOFRAN AND NOW HAS A MIGRAINE. STILL HAVING LEFT FLANK PAIN, NAUSEA AND HEADACHE AT THIS TIME. . 10:24 IV Saline Lock ordered. dt4 10:24 NS 0.9% 500 ml IV at bolus once ordered. dt4 10:24 morphine 4 mg IVP once ordered. dt4 10:24 Metoclopramide 10 mg IV at 40 mg/hr once over 15 mins ordered. dt4 10:26 CBC with Diff Ordered. EDMS 10:26 Basic Metabolic Profile Ordered. EDMS 10:26 CRP Ordered. EDMS 10:26 Urinalysis Ordered. EDMS 10:26 Urine Culture Ordered. EDMS 10:26 US Renal Ordered. EDMS 11:52 [facility] Payment Agreement was scanned into [employer] and attached to record. lg 13:47 T-Sheet-- Draft Copy was scanned into [employer] and attached to record. gb 13:48 Radiology Report was scanned into [employer] and attached to record. gb Administered Medications: 10:35 Drug: morphine 4 mg [morphine 4 mg/mL intravenous cartridge (1 mL)] Route: IVP; Site: dsf right hand; 11:46 Follow up: Pain 1/10 Adult; Response: Pain is decreased kr3 10:35 Drug: Metoclopramide 10 mg [metoclopramide 5 mg/mL injection solution] Route: IV; Rate: dsf 40 mg/hr; Infused Over: 15 mins; Site: right hand; 11:00 Follow up: IV Status: Completed infusion; IV Intake: 10ml dsf 10:36 Drug: NS 0.9% 500 ml [sodium chloride 0.9 % injection solution] Route: IV; Rate: bolus; dsf Site: right hand; 11:47 Follow up: BP 133 / 63; Pulse 92 bpm; Resp 16 bpm; Pulse Ox 96% RA; Pain 05/15 Adult; IV kr3 Status: Completed infusion; IV Intake: 500ml Signatures: Dispatcher [employer] EDLiza Dorman, RN RN [facility] Luz Mairna, Reg Reg gb Zahida Mcadams, Reg Reg lg Julisa Hernández RN RN kr3 Fariba Adam, PA-Josefa PA-Josefa pérez4 Alesha Cuevas RN dsf The chart was reviewed and I authenticate all verbal orders and agree with the evaluation and treatment provided.Attachments: 11:52 [facility] Payment Agreement lg 13:47 T-Sheet-- Draft Copy Chart Complete MTDD
--- NOTE | 2016-05-19 13:04 | EDDOCDS ---
Nurse's Notes [facility] Name: Stacie Canales Age: 55 yrs Sex: Female : 1960 Arrival Date: 05/17/2016 Time: 09:32 Bed I7 / 29 Private MD: Bethel Navarrete M.D. Diagnosis: Migraine, unspecified, not intractable;Nausea;Urinary tract infection, site not specified-with left flank pain;Unspecified renal colic-left Presentation: 05/17 09:42 Presenting complaint: Patient states: she was seen here on 05/14 for bladder infection kcs and kidney stone - returning because the meds are making her sicker - pain meds made her nauseated and anti-emetic called in for her yesterday - now the meds are giving her a migraine. still with left flank pain. Adult Sepsis Screening: The patient does not have new or worsening altered mentation. Patient's respiratory rate is less than 22. Systolic blood pressure is greater than 100. Patient has a qSOFA score of 0- Negative Sepsis Screen. Suicide/Homicide risk assessment- the patient denies having any suicidal and/or homicidal ideations and does not present with any other emotional, behavioral or mental health complaints. Status: Patient is not a digital service engineer or dependent. Transition of care: patient was not received from another setting of care. 09:42 Acuity: MAYRA Level 3 kcs 09:42 Method Of Arrival: Walkin/Carried/Asstd kcs Triage Assessment: 09:45 General: Appears uncomfortable, well developed, well nourished, well groomed, Behavior kcs is cooperative, pleasant. Pain: Location: left flank and head Pain currently is 6 out of 10 on a pain scale. HIV screening NA for this visit Offered previously. Neurological: Level of Consciousness is awake, alert. Respiratory: Airway is patent Respiratory effort is even, unlabored, Respiratory pattern is regular, symmetrical. Derm: Skin is intact, is healthy with good turgor, Skin is dry, Skin is normal. Historical: - Allergies: Codeine Sulfate (Vomit); Toradol (Hives); - Home Meds: 1. Nexium Oral 1 cap once daily 2. Tricor Oral 1 cap once daily 3. Zofran (as hydrochloride) 4 mg Oral tab every 8 hours as needed 4. Percocet 5-325 mg Oral tab 1 tab every 6 hours as needed 5. Cipro 500 mg Oral tab 1 tab every 12 hours - PMHx: GERD; Hypercholesterolemia; UTI; Kidney stones; - PSHx: Appendectomy; Cholecystectomy; ectopic; bilateral thumb surgery; - Social history: Smoking status: Patient states former smoker of tobacco. No barriers to communication noted, The patient speaks fluent Bruneian. - Family history: Not pertinent. - : The pt / caregiver states he / she is not on anticoagulants. Home medication list is obtained from the patient, [employer] import data. - Exposure Risk Screening:: None identified. Screenin:42 Screening information is obtained from the patient. Fall risk: No risks identified. kr3 Assistance ADL's: requires no assistance with activities of daily living. Abuse/DV Screen: The patient / caregiver reports he/she is: not in a situation that causes fear, pain or injury. Nutritional screening: No deficits noted. Advance Directives: Currently, there is no health care proxy. home support is adequate. Assessment: 10:41 General: Appears uncomfortable, Behavior is cooperative. Pain: Location: headache and kr3 left flank. Neurological: Reports headache. Respiratory: Respiratory effort is even, unlabored. GI: Reports nausea, vomiting. Derm: Skin is pink, warm & dry. 10:59 General: Appears in no apparent distress, comfortable, Behavior is appropriate for age, dsf cooperative. Pain: Location: head Pain currently is 1 out of 10 on a pain scale. Neurological: Level of Consciousness is awake, alert. Cardiovascular: No deficits noted. Respiratory: No deficits noted. GI: Reports nausea is better. 10:59 Derm: Skin is pink, warm & dry. dsf 11:47 Reassessment: Patient states feeling better. headache pain 1/10 and back pain 2/10. kr3 Vital Signs: 09:33 BP 188 / 89; Pulse 70; Resp 18; Temp 98.8(O); Pulse Ox 98% ; Weight 77.11 kg (R); ct3 Height 5 ft. 3 in. (160.02 cm) (R); Pain 5/10; 11:46 Pain 1/10; kr3 11:47 BP 133 / 63; Pulse 92; Resp 16; Pulse Ox 96% on R/A; Pain 1/10; kr3 09:33 Body Mass Index 30.11 (77.11 kg, 160.02 cm) ct3 Vitals: 09:33 Log In Time: May 17, 2016 at 09:30. ct3 ED Course: 09:33 Patient visited by Nia Nicholson PCA. ct3 09:33 Bethel Navarrete is Private Physician. ct3 09:33 Patient moved to Waiting ct3 09:34 Patient moved to Pre RCE ct3 09:44 Triage Initiated kcs 09:46 Patient moved to Triage 2 kcs 09:55 Fariba Adam PA-C is PHCP. dt4 09:55 Gautam Vann MD is Attending Physician. dt4 09:55 Patient visited by Fariba Adam PA-C. dt4 10:17 Patient moved to I mk4 10:40 Patient visited by Julisa Hernández RN. kr3 10:40 Urine Culture Sent. kr3 10:40 Urinalysis Sent. kr3 10:40 CRP Sent. kr3 10:40 Basic Metabolic Profile Sent. kr3 10:40 CBC with Diff Sent. kr3 10:42 Inserted saline lock: 20 gauge in right hand The patient tolerated the procedure well. kr3 11:00 Patient visited by Alesha Cuevas RN. dsf 11:00 Patient moved to Ultrasound am10 11:16 Patient moved to am10 11:41 US Renal Returned. EDMS 11:47 Patient visited by Fariba Adam PA-C. dt4 11:52 [facility] Payment Agreement was scanned into [employer] and attached to record. lg 11:54 Pierce Reyna is Referral Physician. dt4 11:57 The patient / caregiver is instructed regarding the plan of care and ED course. kr3 Accompanied by Family Member, Patient has correct armband on for positive identification. Placed in gown. Bed in low position. Call light in reach. Side rails up X 1. 11:58 Discontinued lock intact, bleeding controlled, pressure dressing applied, No kr3 redness/swelling at site. No procedures done that require assistance. 13:47 T-Sheet-- Draft Copy was scanned into [employer] and attached to record. gb 13:48 Radiology Report was scanned into [employer] and attached to record. gb Administered Medications: 10:35 Drug: morphine 4 mg [morphine 4 mg/mL intravenous cartridge (1 mL)] Route: IVP; Site: dsf right hand; 11:46 Follow up: Pain 1/10 Adult; Response: Pain is decreased kr3 10:35 Drug: Metoclopramide 10 mg [metoclopramide 5 mg/mL injection solution] Route: IV; Rate: dsf 40 mg/hr; Infused Over: 15 mins; Site: right hand; 11:00 Follow up: IV Status: Completed infusion; IV Intake: 10ml dsf 10:36 Drug: NS 0.9% 500 ml [sodium chloride 0.9 % injection solution] Route: IV; Rate: bolus; dsf Site: right hand; 11:47 Follow up: BP 133 / 63; Pulse 92 bpm; Resp 16 bpm; Pulse Ox 96% RA; Pain 1/ Adult; IV kr3 Status: Completed infusion; IV Intake: 500ml Intake: 11:00 IV: 10.00ml; Total: 10.00ml. dsf 11:47 IV: 500.00ml; Total: 510.00ml. kr3 Order Results: Lab Order: CBC with Diff; SPEC'M 05/17/16 10:37 Test: WHITE BLOOD COUNT; Value: 11.2; Range: 4.0-10.0; Abnormal: Above high normal; Units: K/mm3; Status: F Test: RED BLOOD COUNT; Value: 4.09; Range: 4.00-5.40; Units: M/mm3; Status: F Test: HEMOGLOBIN; Value: 12.9; Range: 12.0-16.0; Units: g/dl; Status: F Test: HEMATOCRIT; Value: 38.5; Range: 36.0-47.0; Units: %; Status: F Test: MEAN CORPUSCULAR VOLUME; Value: 94.0; Range: 80.0-96.0; Units: fl; Status: F Test: MEAN CORPUSCULAR HEMOGLOBIN; Value: 31.5; Range: 27.0-33.0; Units: pg; Status: F Test: MEAN CORPUSCULAR HGB CONC; Value: 33.5; Range: 32.0-36.5; Units: g/dl; Status: F Test: RED CELL DISTRIBUTION WIDTH; Value: 11.9; Range: 11.5-14.5; Units: %; Status: F Test: PLATELET COUNT, AUTOMATED; Value: 179; Range: 150-450; Units: k/mm3; Status: F Test: NEUTROPHILS %; Value: 76.9; Range: 36.0-66.0; Abnormal: Above high normal; Units: %; Status: F Test: LYMPH %; Value: 16.0; Range: 24.0-44.0; Abnormal: Below low normal; Units: %; Status: F Test: MONO %; Value: 5.3; Range: 0.0-5.0; Abnormal: Above high normal; Units: %; Status: F Test: EOS %; Value: 0.7; Range: 0.0-3.0; Units: %; Status: F Test: BASO %; Value: 0.2; Range: 0.0-1.0; Units: %; Status: F Test: LARGE UNSTAINED CELL %; Value: 1.0; Range: 0.0-4.0; Units: %; Status: F Test: NEUTROPHILS #; Value: 8.6; Range: 1.8-7.7; Abnormal: Above high normal; Units: K/mm3; Status: F Test: LYMPH #; Value: 1.8; Range: 1.5-4.5; Units: K/mm3; Status: F Test: MONO #; Value: 0.6; Range: 0.0-0.8; Units: K/mm3; Status: F Test: EOS #; Value: 0.1; Range: 0.0-0.50; Units: K/mm3; Status: F Test: BASO #; Value: 0.0; Range: 0.0-0.2; Units: K/mm3; Status: F Test: LARGE UNSTAINED CELL #; Value: 0.1; Range: 0.0-0.4; Units: K/mm3; Status: F Lab Order: Basic Metabolic Profile; SPEC'M 05/17/16 10:37 Test: GLUCOSE, FASTING; Value: 105; Range: 70-105; Units: MG/DL; Status: F Test: BLOOD UREA NITROGEN; Value: 9; Range: 7-18; Units: MG/DL; Status: F Test: CREATININE FOR GFR; Value: 0.89; Range: 0.55-1.02; Units: MG/DL; Status: F Test: GLOMERULAR FILTRATION RATE; Value: > 60.0; Range: >51; Status: F Test: SODIUM LEVEL; Value: 141; Range: 136-145; Units: MEQ/L; Status: F Test: POTASSIUM SERUM; Value: 3.6; Range: 3.5-5.1; Units: MEQ/L; Status: F Test: CHLORIDE LEVEL; Value: 105; Range: 98-107; Units: MEQ/L; Status: F Test: CARBON DIOXIDE LEVEL; Value: 28; Range: 21-32; Units: MEQ/L; Status: F Test: ANION GAP; Value: 8; Range: 8-16; Units: MEQ/L; Status: F Test: CALCIUM LEVEL; Value: 8.6; Range: 8.5-10.1; Units: MG/DL; Status: F Test Note: ; Units are mL/min/1.73 m2 Chronic Kidney Disease Staging per NKF: Stage I & II GFR >=60 Normal to Mildly Decreased Stage III GFR 30-59 Moderately Decreased Stage IV GFR 15-29 Severely Decreased Stage V GFR <15 Very Little GFR Left ESRD GFR <15 on SECOND OPERATOR Lab Order: CRP; SPEC'M 05/17/16 10:37 Test: C REACTIVE PROTEIN QUANTITATIV; Value: 3.63; Range: 0.00-0.30; Abnormal: Above high normal; Units: MG/DL; Status: F Lab Order: Urinalysis; SPEC'M 05/17/16 10:38 Test: APPEARANCE, URINE; Value: CLEAR; Range: CLEAR; Status: F Test: COLOR, URINE; Value: YELLOW; Range: YELLOW; Status: F Test: PH,URINE; Value: 6.0; Range: 5.0-9.0; Units: UNITS; Status: F Test: SPECIFIC GRAVITY URINE AUTO; Value: 1.008; Range: 1.002-1.035; Status: F Test: PROTEIN, URINE AUTO; Value: NEGATIVE; Range: NEGATIVE; Units: mg/dL; Status: F Test: GLUCOSE, URINE (UA) AUTO; Value: NEGATIVE; Range: NEGATIVE; Units: mg/dL; Status: F Test: KETONE, URINE AUTO; Value: NEGATIVE; Range: NEGATIVE; Units: mg/dL; Status: F Test: UROBILINOGEN, URINE AUTO; Value: 0.2; Range: 0.0-2.0; Units: mg/dL; Status: F Test: BILIRUBIN, URINE AUTO; Value: NEGATIVE; Range: NEGATIVE; Status: F Test: NITRITE, URINE AUTO; Value: NEGATIVE; Range: NEGATIVE; Status: F Test: LEUKOCYTE ESTERASE, URINE AUTO; Value: TRACE; Range: NEGATIVE; Abnormal: Above high normal; Status: F Test: BLOOD, URINE BLOOD; Value: 3+; Range: NEGATIVE; Abnormal: Above high normal; Status: F Test: WBC, URINE AUTO; Value: 4; Range: 0-3; Abnormal: Above high normal; Units: /HPF; Status: F Test: RBC, URINE AUTO; Value: 6; Range: 0-3; Abnormal: Above high normal; Units: /HPF; Status: F Test: BACTERIA, URINE AUTO; Value: 1+; Range: NEGATIVE; Abnormal: Above high normal; Status: F Test: SQUAMOUS EPITHELIAL CELL UR AU; Value: 3; Range: 0-6; Units: /HPF; Status: F Test: MUCUS, URINE; Value: SMALL; Range: NEGATIVE; Status: F Test: HYALINE CAST, URINE AUTO; Value: 0; Range: 0-1; Units: /LPF; Status: F Lab Order: Urine Culture; SPEC'M 05/17/16 10:38 Test: URINE CULTURE; Value: URINE CULTURE RESULT NO GROWTH; Status: F Radiology Order: US Renal Test: US Renal REASON FOR EXAMINATION: RECENT LEFT URETERAL STONE; Clinical: Recent acute left obstructive uropathy.; ; Technique: Real time kwon scale ultrasound examination using curved array; transducer.; ; Findings:; The bilateral kidneys are normal in contour, size, echogenicity and reniform; shape without hydronephrosis, nephrolithiasis, cystic or renal mass lesion. No; perinephric fluid collections are identified. The bladder is unremarkable and; bilateral ureteral jets are identified.; ; Right kidney measures 12.6 x 6.2 x 5.6 cm.; Left kidney measures 12.6 x 5.2 x 6.8 cm.; ; Impression:; Normal renal ultrasound.; ; ; Signed by; Marvin Narayan MD 05/17/2016 11:26 A; Outcome: 11:47 Ultrasound Study completed. kr3 11:55 Discharge ordered by Provider. dt4 12:02 Discharge Assessment: patient administered narcotics - no. The following High Risk kr3 Discharge criteria are identified: None. Discharged to home ambulatory, with family. Condition: stable. Discharge instructions given to patient, Instructed on discharge instructions, follow up and referral plans. medication usage, Demonstrated understanding of instructions, medications, Pt was receptive of discharge instructions/ teaching. Prescriptions given X 3. Property sent home with patient. 12:02 Patient left the ED. kr3 Signatures: Dispatcher [employer] EDMS Liza Palma, RN RN kcs Luz Marina, Reg Reg gb Zahida Mcadams, Reg Reg lg Julisa Hernández RN RN kr3 Thais Robert am10 Nia Nicholson, CLINICAL RESEARCH ASSISTANT CLINICAL RESEARCH ASSISTANT ct3 Alesha Cuevas,RN RN Rosy Sarkar RN RN mk4 Fariba Adam, PA-C PA-C dt4 Chart Complete FAITH
== END 2016-05-17 12:02 | disposition home or self-care (01) ==
LOC: M ED 09:32
DX: G43.909 Migraine, unspecified, not intractable, without status migrainosus (principal); R11.10 Vomiting, unspecified; N23 Unspecified renal colic; N39.0 Urinary tract infection, site not specified; K21.9 Gastro-esophageal reflux disease without esophagitis; E78.00 Pure hypercholesterolemia, unspecified; Z87.442 Personal history of urinary calculi; Z87.440 Personal history of urinary (tract) infections; Z88.5 Allergy status to narcotic agent; Z87.891 Personal history of nicotine dependence; Z79.899 Other long term (current) drug therapy; Z79.2 Long term (current) use of antibiotics
CPT/HCPCS: 76775; 80048; 81001; 85025; 86140; 87086; 96361; 96365; 96375; 99284; J2765

== ENCOUNTER → 2016-06-15 | Outpatient (CLI) | payer OTHER ==
[2016-06-15 08:58] LABS: ALBUMIN 3.9 GM/DL (3.2-5.2); ALBUMIN/GLOBULIN RATIO 1.11 (1.00-1.93); ALKALINE PHOSPHATASE 84 U/L (45-117); ALT/SGPT 40 U/L (12-78); ANION GAP 8 MEQ/L (8-16); AST/SGOT 26 U/L (15-37); BILIRUBIN,TOTAL 0.4 MG/DL (0.2-1.0); BLOOD UREA NITROGEN 10 MG/DL (7-18); CALCIUM LEVEL 8.7 MG/DL (8.5-10.1); CARBON DIOXIDE LEVEL 27 MEQ/L (21-32); CHLORIDE LEVEL 110 MEQ/L (98-107); CHOLESTEROL LEVEL 175 MG/DL (<200); CREATININE FOR GFR 0.82 MG/DL (0.55-1.02); GLOMERULAR FILTRATION RATE > 60.0 (>51); GLUCOSE, FASTING 103 MG/DL (70-105); POTASSIUM SERUM 4.2 MEQ/L (3.5-5.1); SODIUM LEVEL 145 MEQ/L (136-145); TOTAL PROTEIN 7.4 GM/DL (6.4-8.2); TRIGLYCERIDES LEVEL 147 MG/DL (<150)
== END ==
LOC: M LAB 07:46
PROVIDERS: ATTEND Family Medicine
DX: E78.5 Hyperlipidemia, unspecified (principal)

== ENCOUNTER → 2016-06-21 | Outpatient (REF) | payer OTHER | LOC: M LAB REF 13:23 | PROVIDERS: ATTEND Family Medicine | DX: Z01.89 Encounter for other specified special examinations (principal) ==

== ENCOUNTER → 2016-07-03 | Outpatient (CLI) | payer OTHER ==
--- NOTE | 2016-07-03 09:37 | REPMRS ---
Patient History The patient states she has not had a clinical breast exam in over a year. Patient is postmenopausal. No known family history of cancer. Benign excisional biopsy of both breasts. Benign excisional biopsy of the left breast. Digital Mammo Screening Bilat: July 03, 2016 - Exam #: [id number] Bilateral CC and MLO view(s) were taken. Technologist: Amanda Valdivia, Technologist Prior study comparison: March 24, 2015, bilateral digital mammo screening bilat performed at [facility]. March 11, 2014, digital woman screen mammo, performed at [facility]. March 10, 2013, digital mammo diagnostic bilateral performed at [facility]. FINDINGS: There are scattered fibroglandular densities. There is a moderate amount of residual fibroglandular tissue which is fairly symmetric. There is no interval development of dominant mass, architectural distortion, or clustered microcalcification typical of malignancy. There has been no change in the appearance of the mammogram from the prior studies. ASSESSMENT: BI-RADS/ACR category 1 mammogram. Negative. Recommendation Routine screening mammogram of both breasts in 1 year (for women over age 40). This mammogram was interpreted with the aid of an FDA-approved computer-aided dectection system. Electronically Signed By: Seven Rainey MD 07/03/16 0937
== END ==
LOC: M RAD 07:21
PROVIDERS: ATTEND Family Medicine
DX: Z12.31 Encounter for screening mammogram for malignant neoplasm of breast (principal)

== ENCOUNTER 2016-08-27 07:27 | Emergency (ER) | payer OTHER ==
[~2016-08-27] VITALS: Ht 160 cm; Wt 77.1 kg
[2016-08-27] MEDS ORDERED: AMOX PO (07:45)
[2016-08-27] MEDS ORDERED: FENO48TA2 PO (07:45)
[2016-08-27] MEDS ORDERED: ESOM1CAP5 PO (07:45)
[2016-08-27] MEDS ORDERED: SIMV20TA2 PO (07:45)
[2016-08-27] MEDS ORDERED: ONDANSETRON 4MG/2ML VIAL (J2405) IV ONE (08:45)
[2016-08-27] MEDS ORDERED: MORPHINE 2 MG/ML 1ML SYRINGE IV ONE (08:45)
[2016-08-27 09:16] LABS: BASO % 0.4 % (0.0-1.0); EOS % 0.5 % (0.0-3.0); LARGE UNSTAINED CELL # 0.1 K/mm3 (0.0-0.4); LARGE UNSTAINED CELL % 1.4 % (0.0-4.0); LYMPH # 2.1 K/mm3 (1.5-4.5); LYMPH % 24.1 % (24.0-44.0); MEAN CORPUSCULAR HEMOGLOBIN 33.3 pg (27.0-33.0); MEAN CORPUSCULAR VOLUME 95.2 fl (80.0-96.0); MONO # 0.4 K/mm3 (0.0-0.8); MONO % 4.3 % (0.0-5.0); NEUTROPHILS % 69.3 % (36.0-66.0); PLATELET COUNT, AUTOMATED 244 k/mm3 (150-450); WHITE BLOOD COUNT 8.7 K/mm3 (4.0-10.0)
[2016-08-27 09:19] LABS: CALCIUM LEVEL 8.6 MG/DL (8.5-10.1); CREATININE FOR GFR 1.02 MG/DL (0.55-1.02); GLOMERULAR FILTRATION RATE 59.5 (>51); POTASSIUM SERUM 3.7 MEQ/L (3.5-5.1)
[2016-08-27 09:21] LABS: CALCIUM OXALATE CRYSTALS SMALL
--- NOTE | 2016-08-27 09:25 | REP ---
CT ABDOMEN AND PELVIS WITHOUT CONTRAST: CT abdomen and pelvis performed without oral or IV contrast with sagittal and coronal reconstruction images performed. Comparison 05/15/2016. The visualized lung bases demonstrate minor fibrotic changes. Patient has had a cholecystectomy. There is a small cyst in the inferior left lobe of the liver. Spleen, adrenals and pancreas are unremarkable. There is mild left hydroureteronephrosis caused by a 3 mm stone in the distal left ureter. This appears to have been present on the prior study of 05/15/2016 and is slightly more inferiorly located in the left ureter. Bladder is mildly distended with no gross abnormality. There is no abdominal aortic aneurysm with mild scattered atherosclerotic calcification. No adenopathy, free air or free fluid is seen. No definite bowel wall thickening is seen. There is no pelvic mass. IMPRESSION: There is a 3 mm stone in the distal left ureter causing mild left hydroureteronephrosis. This appears to have been present on the prior study and is slightly more distally located in the left ureter. Signed by Iván Goodrich MD 08/27/2016 08:06 P
[2016-08-27] MEDS ORDERED: NORCOTAB PO (09:54)
[2016-08-27] MEDS ORDERED: FLOM5CAP PO (09:54)
[2016-08-27] MEDS ORDERED: ZOFR4TAB3 PO (09:54)
[2016-08-27 10:23] VITALS: BP 138/88
== END 2016-08-27 10:24 | disposition home or self-care (01) ==
LOC: M ED 08:01
DX: N20.0 Calculus of kidney (principal); K59.09 Other constipation; N39.3 Stress incontinence (female) (male); M19.031 Primary osteoarthritis, right wrist; M19.032 Primary osteoarthritis, left wrist; Z79.899 Other long term (current) drug therapy; Z88.8 Allergy status to other drugs, medicaments and biological substances; Z91.013 Allergy to seafood; Z91.018 Allergy to other foods; Z87.891 Personal history of nicotine dependence
CPT/HCPCS: 74176; 80048; 81001; 85025; 87086; 96374; 96375; 99283; J2405

== ENCOUNTER → 2016-09-03 | Outpatient (REF) | payer OTHER ==
[~2016-09-03] MED LIST: AMOX PO; ESOM1CAP5 PO; FENO48TA2 PO; FLOM5CAP PO; NORCOTAB PO; SIMV20TA2 PO; ZOFR4TAB3 PO
[2016-09-03 14:51] LABS: CALCIUM OXALATE CRYSTALS SMALL
== END ==
LOC: M SMT 12:55
PROVIDERS: ATTEND Nurse Practitioner Women's Health
DX: N13.2 Hydronephrosis with renal and ureteral calculous obstruction (principal); Z01.818 Encounter for other preprocedural examination

== ENCOUNTER → 2016-09-04 | Outpatient (CLI) | payer OTHER ==
[2016-09-04 08:32] LABS: MEAN CORPUSCULAR HGB CONC 33.7 g/dl (32.0-36.5); MEAN CORPUSCULAR VOLUME 94.8 fl (80.0-96.0); RED CELL DISTRIBUTION WIDTH 12.3 % (11.5-14.5); WHITE BLOOD COUNT 5.7 K/mm3 (4.0-10.0)
[2016-09-04 08:43] LABS: INR 0.94
[2016-09-04 08:51] LABS: ANION GAP 9 MEQ/L (8-16); BLOOD UREA NITROGEN 13 MG/DL (7-18); CALCIUM LEVEL 8.7 MG/DL (8.5-10.1); CARBON DIOXIDE LEVEL 26 MEQ/L (21-32); CHLORIDE LEVEL 107 MEQ/L (98-107); CREATININE FOR GFR 0.77 MG/DL (0.55-1.02); GLOMERULAR FILTRATION RATE > 60.0 (>51); GLUCOSE, FASTING 117 MG/DL (70-105); POTASSIUM SERUM 4.3 MEQ/L (3.5-5.1); SODIUM LEVEL 142 MEQ/L (136-145)
--- NOTE | 2016-09-04 10:26 | REP ---
CHEST X-RAY PA AND LATERAL: 09/04/2016. Comparison: 06/05/2010. Clinical history: Preoperative testing in middle-aged female. Findings: The lung camacho are well inflated and without infiltrate, pleural effusion, atelectasis or mass. The heart, mediastinal and hilar contours are normal. Bony thorax shows no focal lesion or compression deformity. No free air under the diaphragm. Impression: 1. No acute cardiopulmonary disease. Stable chest. Signed by Rod Rosenberg MD 09/04/2016 12:37 P
--- NOTE | 2016-09-06 17:38 | ECGEPIP ---
Stationary ECG Study [facility] Test Date: 2016-09-04 Pat Name: CYNDIE MORALES Department: Room: - Gender: F Cell Builder: YOUSIF : 1960 Requested By: Ruma MOLINA Order Number: [id number] Reading MD: Marcell Sheriff Measurements Intervals [place] Rate: 59 P: 26 WA: 159 QRS: 3 QRSD: 99 T: 1 QT: 417 QTc: 415 Interpretive Statements SINUS BRADYCARDIA MINIMAL EARLY REPOLARIZATION NOTED NO PRIOR TRACING IN THE SYSTEM Electronically Signed On 09-06-2016 17:38:23 EDT by Marcell Sheriff
== END ==
LOC: M LAB 07:47
PROVIDERS: ATTEND Nurse Practitioner Women's Health
DX: Z01.818 Encounter for other preprocedural examination (principal); N13.2 Hydronephrosis with renal and ureteral calculous obstruction

== ENCOUNTER → 2016-09-14 | Outpatient (CLI) | payer OTHER | LOC: M LAB 11:34 | PROVIDERS: ATTEND Nurse Practitioner Women's Health | DX: N39.0 Urinary tract infection, site not specified (principal) ==

== ENCOUNTER → 2016-10-04 | Day surgery (SDC) | payer OTHER ==
[~2016-10-04] VITALS: Ht 160 cm; Wt 77.1 kg
[~2016-10-04] MED LIST changes: +CIPR500T3 PO; +CIPROFLOXACIN 500 MG TAB PO SCH; +CONRAY-60 60% 50ML VIAL (Q9961) As Ordered ONE; +HYDROmorphone HCL 1 MG/ML SYRINGE (J1170) IV PRN; +HYDROmorphone HCL 2 MG/ML 1ML VIAL (J1170) As Ordered ONE; +LR 1,000 ML IV ONE; +LR 1,000 ML IV SCH; +METOCLOPRAMIDE INJ 10MG/2ML VIAL (J2765) As Ordered ONE; +MIDAZOLAM INJ 2 MG/2 ML VIAL (J2250) As Ordered ONE; +MULT1TAB10 PO; +ONDANSETRON 4MG/2ML VIAL (J2405) As Ordered ONE; +ONDANSETRON 4MG/2ML VIAL (J2405) IV PRN; +PERCOCET 5MG/325MG TAB PO PRN; +PERCOCET PO; +PROPOFOL 200 MG/20 ML VIAL As Ordered ONE; +PROPOFOL 500 MG/50 ML VIAL As Ordered ONE; +SCOPOLAMINE 1.5 MG TRANSDERMAL As Ordered ONE; +SCOPOLAMINE 1.5 MG TRANSDERMAL TOP ONE; +dexameTHASONE 4 MG/ML 1ML VIAL (J1100) As Ordered ONE; +fentaNYL 100 MCG/2 ML INJECTION (J3010) As Ordered ONE; +fentaNYL 100 MCG/2 ML INJECTION (J3010) IV PRN
--- NOTE | 2016-10-04 19:41 | REP ---
C-ARM VIEWS DURING LEFT RETROGRADE PYELOGRAM AND URETERAL STENT PLACEMENT: Multiple C-Arm views are performed. A small amount of contrast is injected into the left ureter and pelvicalyceal system. There is mild diltation of the left pelvicalyceal system. Left ureteral stent is placed with the proximal end coiled in the left upper pole collecting system and the distal end coiled in the region of the urinary bladder. 52 seconds of fluoroscopy time utilized. Signed by Iván Goodrich MD 10/04/2016 07:46 P
[2016-10-04 20:45] VITALS: BP 181/86
--- NOTE | 2016-10-04 23:40 | RO ---
DATE OF PROCEDURE: 10/04/2016 PREPROCEDURE DIAGNOSIS: Left distal ureteral stone. POSTPROCEDURE DIAGNOSIS: No ureteral stone found. FINDINGS: No ureteral stone found and only left mild hydronephrosis. PROCEDURE: Cystoscopy, plus left retrograde pyelogram, plus left ureteroscopy, plus left double J stent placement, 6-Botswanan Sebastian Cook. SURGEON: Dr. Norberto Meyers RAILROAD CAR REPAIRMAN: ANESTHESIA: General. COMPLICATIONS: None. ESTIMATED BLOOD LOSS: N/A. HISTORY OF THE PRESENT ILLNESS: A 55-year-old female patient who had a left distal ureteral stone since 6 months ago; the patient refers left flank pain. For this reason, she consented for a cystoscopy, plus retrograde pyelogram, plus left ureteroscopy, plus left double J stent placement, possible stone lithotripsy, possible basket extraction of stone. DESCRIPTION OF PROCEDURE: In a patient under general anesthesia in supine modified low lithotomy position, after prepping and draping the area of concern, which included the entire genitalia and abdomen, we started by introducing the cystoscope with a 30 degree lens under videoendoscopic guidance. We then catheterized the left ureteral orifice and then passed the guidewire up to the left kidney. We then proceeded to take the Pollack catheter out and place a double lumen catheter and pass a second guidewire up to the left kidney. We then proceeded to follow the guidewire with the semirigid ureteroscope and did a formal ureteroscopy of the distal ureter, mid ureter and proximal ureter with a 7-Botswanan semirigid ureteroscope. There were no stones found. For this reason, we actually took the semirigid ureteroscope and loaded a flexible ureteroscope up to the kidney We did a retrograde pyelogram in the kidney and nephrostogram and also went with a flexible ureteroscope upper pole, mid pole and lower pole, every single calyx. There were no stones found. Then, we did a retrograde, antegrade ureteroscopy, and there were no stones in the ureter. At that moment in time, we grabbed the cystoscope and following the guidewire, we placed a left double J stent, 6-Botswanan Sebastian Cook. Once the stent was in good position, we took the guidewire out. We could see the curl in the kidney and the curl in the bladder. We emptied the bladder and took the cystoscope out. PLAN: The patient will go home today with ciprofloxacin 500 mg one tablet by mouth twice a day for 10 days. She will have Percocet for pain and followup in 1-2 weeks at [facility] for removal of left double J stent.
== END | disposition home or self-care (01) ==
LOC: M SDC 13:57
PROVIDERS: ATTEND Urology
DX: N13.30 Unspecified hydronephrosis (principal); N39.3 Stress incontinence (female) (male); K21.9 Gastro-esophageal reflux disease without esophagitis; K59.00 Constipation, unspecified; K40.20 Bilateral inguinal hernia, without obstruction or gangrene, not specified as recurrent; M12.9 Arthropathy, unspecified; I49.3 Ventricular premature depolarization; E78.00 Pure hypercholesterolemia, unspecified; R51 Headache; Z88.8 Allergy status to other drugs, medicaments and biological substances; Z91.013 Allergy to seafood; Z91.018 Allergy to other foods; Z79.899 Other long term (current) drug therapy; Z78.0 Asymptomatic menopausal state; Z87.891 Personal history of nicotine dependence; Z87.442 Personal history of urinary calculi; Z87.440 Personal history of urinary (tract) infections
CPT/HCPCS: 52332; 74420; C1726; J0690; J1100; J1170; J2250; J2405; J2765; J3010; Q9961

== ENCOUNTER → 2016-10-19 | Outpatient (REF) | payer OTHER ==
[~2016-10-19] MED LIST changes: -CIPROFLOXACIN 500 MG TAB PO SCH; -CONRAY-60 60% 50ML VIAL (Q9961) As Ordered ONE; -HYDROmorphone HCL 1 MG/ML SYRINGE (J1170) IV PRN; -HYDROmorphone HCL 2 MG/ML 1ML VIAL (J1170) As Ordered ONE; -LR 1,000 ML IV ONE; -LR 1,000 ML IV SCH; -METOCLOPRAMIDE INJ 10MG/2ML VIAL (J2765) As Ordered ONE; -MIDAZOLAM INJ 2 MG/2 ML VIAL (J2250) As Ordered ONE; -ONDANSETRON 4MG/2ML VIAL (J2405) As Ordered ONE; -ONDANSETRON 4MG/2ML VIAL (J2405) IV PRN; -PERCOCET 5MG/325MG TAB PO PRN; -PROPOFOL 200 MG/20 ML VIAL As Ordered ONE; -PROPOFOL 500 MG/50 ML VIAL As Ordered ONE; -SCOPOLAMINE 1.5 MG TRANSDERMAL As Ordered ONE; -SCOPOLAMINE 1.5 MG TRANSDERMAL TOP ONE; -dexameTHASONE 4 MG/ML 1ML VIAL (J1100) As Ordered ONE; -fentaNYL 100 MCG/2 ML INJECTION (J3010) As Ordered ONE; -fentaNYL 100 MCG/2 ML INJECTION (J3010) IV PRN
== END ==
LOC: M SMT 15:04
PROVIDERS: ATTEND Urology
DX: N13.2 Hydronephrosis with renal and ureteral calculous obstruction (principal)

== ENCOUNTER → 2016-12-26 | Outpatient (CLI) | payer OTHER ==
[2016-12-26 14:15] LABS: ALBUMIN 4.3 GM/DL (3.2-5.2); ALKALINE PHOSPHATASE 89 U/L (45-117); ALT/SGPT 47 U/L (12-78); ANION GAP 9 MEQ/L (8-16); AST/SGOT 35 U/L (15-37); BILIRUBIN,TOTAL 0.4 MG/DL (0.2-1.0); BLOOD UREA NITROGEN 8 MG/DL (7-18); CALCIUM LEVEL 8.8 MG/DL (8.5-10.1); CARBON DIOXIDE LEVEL 26 MEQ/L (21-32); CHLORIDE LEVEL 110 MEQ/L (98-107); CHOLESTEROL LEVEL 171 MG/DL (<200); CREATININE FOR GFR 0.69 MG/DL (0.55-1.02); GLOMERULAR FILTRATION RATE > 60.0 (>51); GLUCOSE, FASTING 93 MG/DL (70-105); POTASSIUM SERUM 4.1 MEQ/L (3.5-5.1); SODIUM LEVEL 145 MEQ/L (136-145); TOTAL PROTEIN 7.6 GM/DL (6.4-8.2); TRIGLYCERIDES LEVEL 188 MG/DL (<150)
== END ==
LOC: M LAB 12:19
PROVIDERS: ATTEND Family Medicine
DX: E07.9 Disorder of thyroid, unspecified (principal)

== ENCOUNTER → 2017-03-21 | Outpatient (REF) | payer OTHER | LOC: M LAB REF 10:40 | PROVIDERS: ATTEND Physician Assistant Medical | DX: L02.212 Cutaneous abscess of back [any part, except buttock and flank] (principal) ==

== ENCOUNTER → 2017-09-05 | Outpatient (CLI) | payer OTHER | LOC: M RAD 13:47 | DX: Z12.31 Encounter for screening mammogram for malignant neoplasm of breast (principal) | CPT/HCPCS: 77067 ==

== ENCOUNTER → 2017-10-21 | Outpatient (CLI) | payer OTHER ==
[~2017-10-21] MED LIST changes: -AMOX PO; -CIPR500T3 PO; +CONRAY-43 43% 50ML VIAL (Q9960) As Ordered; -ESOM1CAP5 PO; -FENO48TA2 PO; -FLOM5CAP PO; -MULT1TAB10 PO; -NORCOTAB PO; -PERCOCET PO; +PROHANCE 279.3MG/ML 5ML VIAL (A9576) As Ordered; -SIMV20TA2 PO; -ZOFR4TAB3 PO
== END ==
LOC: M RADPRO 06:50
DX: S56.512D Strain of other extensor muscle, fascia and tendon at forearm level, left arm, subsequent encounter (principal); Z87.39 Personal history of other diseases of the musculoskeletal system and connective tissue; Y92.89 Other specified places as the place of occurrence of the external cause; Y93.89 Activity, other specified; X58.XXXD Exposure to other specified factors, subsequent encounter; Y99.8 Other external cause status
CPT/HCPCS: 25246

== ENCOUNTER → 2018-03-10 | Outpatient (CLI) | payer OTHER | LOC: M SMT 09:09 | DX: M79.641 Pain in right hand (principal) | CPT/HCPCS: 73130 ==

== ENCOUNTER → 2018-03-18 | Outpatient (REF) | payer OTHER | LOC: M LAB REF 11:26 | DX: J06.9 Acute upper respiratory infection, unspecified (principal) ==

== ENCOUNTER 2018-04-05 10:57 | Emergency (ER) | payer OTHER ==
[2018-04-05 12:42] LABS: BASO % 0.2 % (0.0-1.0); EOS % 0.1 % (0.0-3.0); HEMATOCRIT 43.8 % (36.0-47.0); HEMOGLOBIN 14.7 g/dl (12.0-15.5); IMMATURE GRANULOCYTE % 0.3 % (0-3.0); LYMPH # 2.5 10^3/uL (1.5-4.5); LYMPH % 27.7 % (24.0-44.0); MEAN CORPUSCULAR HEMOGLOBIN 31.7 pg (27.0-33.0); MEAN CORPUSCULAR HGB CONC 33.6 g/dl (32.0-36.5); MEAN CORPUSCULAR VOLUME 94.6 fl (80.0-96.0); MONO # 0.5 10^3/uL (0.0-0.8); MONO % 5.5 % (0.0-5.0); NEUTROPHILS % 66.2 % (36.0-66.0); PLATELET COUNT, AUTOMATED 262 10^3/uL (150-450); RED BLOOD COUNT 4.63 10^6/uL (4.00-5.40); RED CELL DISTRIBUTION WIDTH 11.7 % (11.5-14.5)
[2018-04-05 12:53] LABS: ANION GAP 7 MEQ/L (8-16); BLOOD UREA NITROGEN 8 MG/DL (7-18); C REACTIVE PROTEIN QUANTITATIV < 0.30 MG/DL (0.00-0.30); CALCIUM LEVEL 8.7 MG/DL (8.5-10.1); CARBON DIOXIDE LEVEL 24 MEQ/L (21-32); CHLORIDE LEVEL 109 MEQ/L (98-107); CREATININE FOR GFR 0.82 MG/DL (0.55-1.30); GLOMERULAR FILTRATION RATE > 60.0 (>51); GLUCOSE, FASTING 139 MG/DL (70-100); POTASSIUM SERUM 3.8 MEQ/L (3.5-5.1); SODIUM LEVEL 140 MEQ/L (136-145)
[2018-04-05 13:02] LABS: ERYTHROCYTE SEDIMENTATION RATE 23 mm/hr (0-30)
[2018-04-08 14:13] LABS: Lyme Disease IgG/IgM Antibodie <0.91 ISR (0.00-0.90); Lyme Disease IgM Ab Quantitati <0.80 index (0.00-0.79)
== END 2018-04-05 13:32 | disposition home or self-care (01) ==
LOC: M ED 10:57
DX: G51.0 Bell's palsy (principal); I10 Essential (primary) hypertension; I49.3 Ventricular premature depolarization; M19.031 Primary osteoarthritis, right wrist; M19.041 Primary osteoarthritis, right hand; K21.9 Gastro-esophageal reflux disease without esophagitis; R51 Headache; Z87.442 Personal history of urinary calculi; Z87.891 Personal history of nicotine dependence; Z88.5 Allergy status to narcotic agent; Z91.013 Allergy to seafood; Z91.018 Allergy to other foods; Z79.899 Other long term (current) drug therapy
CPT/HCPCS: 70450

== ENCOUNTER → 2018-05-30 | Outpatient (CLI) | payer OTHER ==
[~2018-05-30] MED LIST changes: +AMLO5TAB6; +AMOX PO; +CIPR500T3 PO; -CONRAY-43 43% 50ML VIAL (Q9960) As Ordered; +CONRAY-43 43% 50ML VIAL (Q9960) As Ordered ONE; +ESOM1CAP5 PO; +FENO48TA2 PO; +FLOM0.4C39 PO; +MULT1TAB10 PO; +NEXI40CA PO; +NORCOTAB PO; +PERC5TAB12 PO; +PERCOCET PO; +PRED20TA PO; -PROHANCE 279.3MG/ML 5ML VIAL (A9576) As Ordered; +PROHANCE 279.3MG/ML 5ML VIAL (A9576) As Ordered ONE; +SIMV20TA2 PO; +VALA1TAB2 PO; +ZOFR4TAB14 PO
--- NOTE | 2018-05-30 09:24 | REP ---
MR ARTHROGRAPHY LEFT WRIST WITH PRE- AND POST INTRA-ARTICULAR GADOLINIUM ENHANCED SALINE INJECTED IMAGING: HISTORY: Distal ulnar nerve compression and triangular fibrocartilage tear. Left wrist pain. Comparison left wrist radiographs are from October 04, 2015. Comparison left wrist MR arthrography is from October 21 2017. TECHNIQUE: Axial, coronal and sagittal imaging planes utilized. T1- and T2-weighted scans were obtained with and without fat saturation and before and after the gadolinium enhanced saline injection. This injection procedure is performed and dictated separately. MRI FINDINGS: The patient is status post resection of the greater multangular bone. There is a metallic orthopedic anchor projecting in the base of the 1st metacarpal along its ulnar aspect as seen previously. There is some metallic field susceptibility artifact emanating from this although the artifact is mild. There are several ossific bodies at the palmar aspect of the 2nd carpometacarpal articulation unchanged. Cortical and medullary bone signal intensity are normal in the remaining carpal bones and in the visualized metacarpals as well as the distal radius and ulna. Triangular fibrocartilage has a normal appearance and is intact on post injection imaging. There is no evidence of lunotriquetral or scapholunate ligament disruption. Pre-injection imaging shows no significant wrist joint effusion. No juxta-articular cyst is seen. Carpal tunnel and its contents are unremarkable. Thickening and increased signal intensity is again noted in the extensor carpi ulnaris tendon over the distal ulna. Post injection images demonstrate contrast enhanced saline extravasation adjacent to the ulnar styloid. This was observed previously. It is most consistent with injection artifact. No other tendinopathy is appreciated. There is no evidence of cyst, mass or deflection of the ulnar nerve or artery on wrist MR imaging. IMPRESSION: No evidence of triangular fibrocartilage tear. Status post resection of the greater multangular. There are small ossific bodies at the volar aspect of the 2nd metacarpocarpal articulation likely related to previous surgery. There is thickening and increased signal intensity in the extensor carpi ulnaris tendon as before. No new abnormality. Electronically Signed by Dae Rainey MD 05/30/2018 10:43 A
--- NOTE | 2018-05-30 16:33 | REP ---
LEFT WRIST ARTHROGRAM The procedure was performed under the direct supervision of Dr. Rainey. The images were reviewed with Dr. Rainey. The benefits and risks including but not limited to pain infection bleeding and anaphylaxis were explained to the patient and informed consent was obtained. The left radial scaphoid joint space was localized using fluoroscopic guidance. The skin was prepped and draped in a sterile fashion. 1% lidocaine was used as a local anesthetic. Using fluoroscopic guidance a 25-gauge needle was inserted and advanced into the joint. 3 ml of a solution containing 5 ml of Conray 43 and 5 ml of a solution containing 20 ml of sterile saline and 0.15 ml of ProHance was injected into the joint. Images obtained during injection show filling of the radial carpal row. The scapholunate and lunatotriquetral ligaments appear intact. The triangular fibrocartilage complex appears intact. The needle was removed and the patient was taken to MRI for postprocedural imaging. 0.5 mGy was utilized for this procedure Reviewed by ZAKI Mendez 05/30/2018 03:57 P Electronically Signed by Dae Rainey MD 05/30/2018 04:24 P
== END ==
LOC: M RADPRO 06:32
PROVIDERS: ATTEND Physician Assistant
DX: M25.532 Pain in left wrist (principal); Z98.890 Other specified postprocedural states; M89.8X4 Other specified disorders of bone, hand
CPT/HCPCS: 25246; 73223; 77002; A9576; Q9960

== ENCOUNTER → 2018-08-01 | Outpatient (CLI) | payer OTHER ==
[~2018-08-01] MED LIST changes: -CONRAY-43 43% 50ML VIAL (Q9960) As Ordered ONE; -PROHANCE 279.3MG/ML 5ML VIAL (A9576) As Ordered ONE
[2018-08-01 07:49] LABS: BASO % 0.5 % (0.0-1.0); EOS # 0.1 10^3/uL (0.0-0.50); EOS % 0.7 % (0.0-3.0); HEMATOCRIT 43.3 % (36.0-47.0); HEMOGLOBIN 14.3 g/dl (12.0-15.5); LYMPH # 2.7 10^3/uL (1.5-4.5); LYMPH % 36.2 % (24.0-44.0); MEAN CORPUSCULAR HEMOGLOBIN 31.3 pg (27.0-33.0); MEAN CORPUSCULAR VOLUME 94.7 fl (80.0-96.0); MONO # 0.6 10^3/uL (0.0-0.8); MONO % 8.5 % (0.0-5.0); PLATELET COUNT, AUTOMATED 228 10^3/uL (150-450); RED BLOOD COUNT 4.57 10^6/uL (4.00-5.40); WHITE BLOOD COUNT 7.4 10^3/uL (4.0-10.0)
[2018-08-01 08:11] LABS: ALBUMIN 4.1 GM/DL (3.2-5.2); ALT/SGPT 61 U/L (12-78); BILIRUBIN,TOTAL 0.4 MG/DL (0.2-1.0); BLOOD UREA NITROGEN 14 MG/DL (7-18); CALCIUM LEVEL 9.4 MG/DL (8.5-10.1); CARBON DIOXIDE LEVEL 30 MEQ/L (21-32); CHLORIDE LEVEL 105 MEQ/L (98-107); CREATININE FOR GFR 0.92 MG/DL (0.55-1.30); GLOMERULAR FILTRATION RATE > 60.0 (>51); GLUCOSE, FASTING 127 MG/DL (70-100); POTASSIUM SERUM 4.3 MEQ/L (3.5-5.1); SODIUM LEVEL 142 MEQ/L (136-145); TOTAL PROTEIN 7.7 GM/DL (6.4-8.2)
--- NOTE | 2018-08-02 10:06 | ECGEPIP ---
Stationary ECG Study [facility] Test Date: 2018-08-01 Pat Name: CYNDIE MORALES Department: Room: - Gender: F Adult Ministries Director: HENRY : 1960 Requested By: Herman Robert Order Number: [id number] Reading MD: John Westbrook Measurements Intervals [place] Rate: 64 P: 31 PA: 163 QRS: 4 QRSD: 94 T: 16 QT: 401 QTc: 416 Interpretive Statements SINUS RHYTHM LOW QRS VOLTAGE IN PRECORDIAL LEADS NON-SPECIFIC PRECORDIAL STT ABNORMALITIES SINCE 09/04/16 STT ABNORMALITIES ARE MORE APPARENT Electronically Signed On 08-02-2018 10:06:03 EDT by John Westbrook
== END ==
LOC: M LAB 07:21
PROVIDERS: ATTEND Podiatrist
DX: Z01.818 Encounter for other preprocedural examination (principal); M20.11 Hallux valgus (acquired), right foot; M21.621 Bunionette of right foot; M72.2 Plantar fascial fibromatosis; M20.41 Other hammer toe(s) (acquired), right foot

== ENCOUNTER 2018-08-15 07:30 | Day surgery (SDC) | payer OTHER ==
[~2018-08-15] VITALS: Ht 160 cm; Wt 80.3 kg
[~2018-08-15 07:30] MED LIST changes: -AMLO5TAB6; +AMLO5TAB6 PO; +HYDR-3715 PO; -NORCOTAB PO
[2018-08-15] MEDS ORDERED: ceFAZolin 2 GM/D5W 50 ML IV BAG (J0690 PER 500MG) As Ordered ONE (08:07)
[2018-08-15] MEDS ORDERED: LR 1,000 ML IV ONE (08:15)
[2018-08-15] MEDS ORDERED: NEOSPORIN GU IRRIG 20 ML VIAL As Ordered ONE (08:57)
[2018-08-15] MEDS ORDERED: dexameTHASONE 4 MG/ML 1ML VIAL (J1100) As Ordered ONE (08:57)
[2018-08-15] MEDS ORDERED: BACITRACIN PWD 50,000 UNITS VIAL As Ordered ONE (08:57)
[2018-08-15] MEDS ORDERED: BUPIVACAINE HCL 0.5% 30 ML VIAL As Ordered ONE (08:58)
[2018-08-15] MEDS ORDERED: LIDOCAINE 2% MDV 20 ML VIAL As Ordered ONE (08:58)
[2018-08-15 12:02] VITALS: BP 137/69
--- NOTE | 2018-08-15 12:24 | REP ---
FOOT SERIES: Three views. HISTORY: Postop. FINDINGS: Three views of the right foot are obtained through overlying cast material. The patient is status post 1st and 5th metatarsal bunion repair. A metallic screw is seen transfixing the osteotomy is in the 1st and 5th metatarsals in the usual fashion. The patient is also status post osteotomy and resection of the distal portion of the distal phalanx of the 5th toe. IMPRESSION: Status post bunion repair distal 5th and distal 1st metatarsals. Proximal 5th phalangeal osteotomy. Electronically Signed by Dae Rainey MD 08/15/2018 08:02 P
--- NOTE | 2018-08-15 17:48 | RO ---
DATE OF PROCEDURE: 08/15/2018 PREPROCEDURE DIAGNOSIS: Plantar fasciitis right foot, hallux valgus deformity right foot, bunionette deformity right foot, hammertoe deformity 5th toe right foot. POSTPROCEDURE DIAGNOSIS: Plantar fasciitis right foot, hallux valgus deformity right foot, bunionette deformity right foot, hammertoe deformity 5th toe right foot. PROCEDURE: 1. Endoscopic plantar fasciotomy right foot. 2. Veda bunionectomy with internal screw fixation right foot. 3. Tailor's bunionectomy with distal V osteotomy, internal screw fixation right foot. 4. Proximal interphalangeal joint arthroplasty 5th toe right foot. HARDWARE UTILIZED: Arthrex 2.5 x 16 headless screw and an Arthrex 3.0 x 26 mm headless screw. SURGEON: Dr. Herman Robert DPM OUTSIDE SALES ASSOCIATE: None. ANESTHESIA: HEMOSTASIS: Ankle pneumatic tourniquet at 200 mmHg for 91 minutes. ESTIMATED BLOOD LOSS: Less than 1 mL. IRRIGATION: Dilute bacitracin, neomycin and polymyxin B solution. DESCRIPTION OF PROCEDURE: On 08/15/2018, this 57-year-old white female was taken from her hospital room to the operating room and placed on the operating table in the supine position. Following the induction of intravenous (IV) sedation and local and regional anesthesia, right lower extremity was prepped and draped in the usual aseptic manner. Sterile draping was completed. Right lower extremity was returned to the operating table and the following procedure was performed; ENDOSCOPIC PLANTAR FASCIOTOMY RIGHT FOOT: Attention was directed to the patient's right foot where a 5 mm vertical incision was placed distal to the medial tuberosity of the foot. Utilizing dissection scissors, a tunnel was created on the inferior surface of the foot just inferior to the plantar fascia. An Arthrex Centerline endoscopic blade with scope was then inserted into the tunnel created. Three-quarters of the plantar fascia was visualized and transected under direct visualization until the flexor digitorum brevis muscle could be visualized. The scope with blade was then removed. The wound was irrigated with dilute bacitracin, neomycin and polymyxin B solution. Subcutaneous tissues were coapted and maintained with #4-0 Vicryl in a simple interrupted type fashion. The skin incision was coapted and maintained utilizing #4-0 Prolene in a horizontal mattress type fashion. Attention was then directed to the dorsal surface of the foot where the following procedure was performed: VEDA BUNIONECTOMY, INTERNAL SCREW FIXATION 3.0 mm x 26 mm x 1 RIGHT FOOT: Attention was directed to the patient's foot. There was noted to be a hallux valgus deformity. At this time, a 6 cm incision was placed over the 1st metatarsophalangeal joint medial to the extensor tendon. The incision was deepened through subcutaneous tissues and all coursing venous tributaries were identified, underscored, clamped, cut, ligated and electrocoagulated as necessary. A linear capsulotomy was performed in the same plane as the original skin incision. The capsular and periosteal structures were then dissected free in one continuous layer dorsally, medially and laterally thus creating a capsular periosteal type envelope. This delivered into view the hypertrophied medial eminence of the 1st metatarsal, which was osteotomized from dorsal to proximal, through and through. This was extirpated from the wound. Dissection was carried into the 1st intermetatarsal space where dissection was carried down to the level of the fibular sesamoid. Linear capsulotomy, cutting the fibular suspensory ligament was then performed. The conjoined tendon was sharply dissected free from the fibular sesamoid allowing mobilization of the fibular sesamoid. Attention was then directed to the medial surface of the 1st metatarsal where a V-shaped osteotomy was performed with a long plantar and short dorsal wing. Upon creation of this osteotomy, capital fragment was transposed approximately 40% of the width of the shaft of the 1st metatarsal and fixated with a 3.0 x 26 mm headless compression screw. Osteotomy was noted to be stable in all three cardinal planes, and the Arthrex screw did not penetrate through the inferior cartilage. The redundant cortical spike was then osteotomized from dorsal to plantar, medial surface was rasped to a smooth contour with a handheld rasp. The wound was again flushed with copious amounts of dilute bacitracin, neomycin and polymyxin B solution. Attention was directed towards closure where the capsular structures were coapted and maintained utilizing #2-0 Monocryl in a simple interrupted type fashion. Subcutaneous tissue was coapted and maintained using #4-0 Monocryl in a simple interrupted type fashion. Skin incision was coapted and maintained with #5-0 Monocryl in a continuous subcuticular type fashion, and this was additionally reinforced with Steri-Strips. Attention was then directed to the lateral surface of the foot where the following procedure was performed: TAILOR'S BUNIONECTOMY WITH DISTAL V OSTEOTOMY, INTERNAL SCREW FIXATION RIGHT FOOT: Attention was directed to the patient's lateral surface of the foot where a 4 cm incision was placed on the lateral surface over the 5th metatarsophalangeal joint. The incision was deepened through subcutaneous tissues and all coursing venous tributaries were identified, underscored, clamped, cut, ligated and electrocoagulated as necessary. Linear capsulotomy was performed in the same plane as the original skin incision. Capsular and periosteal structures were then mobilized. Attention was directed to the prominent lateral eminence, which was osteotomized from distal to proximal, through and through and extirpated from the wound. A V-shaped osteotomy was then performed on the distal metaphysis of the 5th metatarsal with a long plantar and short dorsal wing. Upon creation of this osteotomy, the capital fragment was transposed one-third of the width of the shaft of the 5th metatarsal and fixated with a 2.5 x 16 mm headless compression screw. The screw did not appear to penetrate the inferior cartilage with range of motion of the 5th metatarsophalangeal joint. The redundant cortical spike was then osteotomized from dorsal to plantar, through and through and then the lateral surface was rasped with a handheld rasp. The wound was flushed with copious amounts of dilute bacitracin, neomycin and polymyxin B solution. Attention was directed towards closure where the capsular structures were coapted and maintained utilizing #2-0 Monocryl in a simple interrupted type fashion. Skin incision was coapted and maintained using #4-0 Monocryl in a simple interrupted type fashion. Skin incision was coapted and maintained utilizing #5-0 Monocryl in a continuous subcuticular type fashion, additionally reinforced with Steri-Strips. Attention was directed to the 5th toe where the following procedure was performed: PROXIMAL INTERPHALANGEAL JOINT ARTHROPLASTY OF THE 5th TOE RIGHT FOOT: Attention was directed to the patient's 5th toe. There was noted to be a hammertoe deformity. At this time, a 2 cm incision was placed over the proximal interphalangeal joint of the 5th toe of the right foot. Dissection was carried down to the level of the extensor tendon and transverse tenotomy and capsulotomy was performed at the proximal interphalangeal joint. The extensor tendon was retracted in a proximal direction. The medial and lateral collateral ligaments were sharply dissected free from the head of the proximal phalanx. Utilizing a power saw, an osteotomy was performed to the anatomical neck of the 5th proximal phalanx from dorsal to plantar, through and through. This was extirpated from the wound. The wound was flushed with copious amounts of dilute bacitracin, neomycin and polymyxin B solution. Attention was directed towards closure where the extensor tendon was coapted and maintained utilizing #4-0 braided nylon and looped suture in a four-stranded core repair with a Silverman fashion. Skin incision was coapted and maintained using #4-0 Prolene in a simple interrupted and horizontal mattress type fashion. Attention was directed towards bandaging where just prior to bandaging, 4 mg of dexamethasone sodium phosphate was instilled proximal to the surgical site. Adaptic, 4 x 4's, 4 x 4 splints, Ella, Kerlix and Coban. Ankle pneumatic tourniquet was rapidly deflated and instantaneous capillary filling time was noted in digits 1-5 of the patient's right foot. The patient having apparently tolerated the surgical procedure well was taken from the operating room to the recovery room for further monitoring by the anesthesia department. All surgical specimens removed during the operative procedure were sent to Pathology for gross and microscopic examination. Postoperative instructions given upon discharge.
== END 2018-08-15 12:22 | disposition home or self-care (01) ==
LOC: M SDC 07:30
PROVIDERS: ATTEND Podiatrist
DX: M72.2 Plantar fascial fibromatosis (principal); M20.11 Hallux valgus (acquired), right foot; M21.621 Bunionette of right foot; M20.41 Other hammer toe(s) (acquired), right foot; I10 Essential (primary) hypertension; E78.5 Hyperlipidemia, unspecified; K21.9 Gastro-esophageal reflux disease without esophagitis; Z79.899 Other long term (current) drug therapy
CPT/HCPCS: 28110; 28285; 28296; 29893; 73630; 88300; 97116; C1713; J0690; J1100

== ENCOUNTER → 2019-07-06 | Outpatient (CLI) | payer OTHER ==
[~2019-07-06] MED LIST changes: -FENO48TA2 PO; +FENO48TA7 PO; -SIMV20TA2 PO; +SIMV20TA22 PO; -VALA1TAB2 PO; +VALA1TAB5 PO
--- NOTE | 2019-07-06 14:42 | REP ---
Three-phase bone scan of the feet and ankles: History: Question stress fracture second metatarsal. The patient status post bunion repair. Comparison radiographs August 15, 2018. Technique: 22.0 mCi technetium 99m MDP is injected and three-phase imaging was acquired. Scintigraphic findings: Anterior and posterior flow images demonstrate minimal asymmetric hyperemic flow in the right foot and ankle soft tissues compared to the left. Blood pool images demonstrate this slight asymmetry of soft tissue uptake as well. On delayed scan images there is mildly increased uptake at the distal first metatarsal and distal fifth metatarsal on the right compared to the left. There is no evidence of abnormal second metatarsal uptake to suggest a stress fracture. Uptake in the distal first and fifth metatarsals is consistent with relatively recent surgery. There is mildly asymmetric uptake in the midfoot articulations on the right compared to the left. Impression: There is no evidence to suggest metatarsal stress fracture. Postoperative uptake in the distal first and fifth metatarsals of the right foot and minimal hyperemia in the right foot. Electronically Signed by Dae Rainey MD 07/06/2019 08:05 P
== END ==
LOC: M RAD 09:40
PROVIDERS: ATTEND Podiatrist
DX: M25.879 Other specified joint disorders, unspecified ankle and foot (principal)
CPT/HCPCS: 78315; A9503

== ENCOUNTER 2019-12-25 06:08 | Day surgery (SDC) | payer OTHER ==
[~2019-12-25] VITALS: Ht 160 cm; Wt 76.7 kg
[~2019-12-25 06:08] MED LIST changes: +AMLO1TAB24 PO; -AMLO5TAB6 PO; +LORA-243 PO
[2019-12-25] MEDS ORDERED: fentaNYL 100 MCG/2 ML INJECTION (J3010) As Ordered ONE (07:10)
[2019-12-25] MEDS ORDERED: ONDANSETRON 4MG/2ML VIAL As Ordered ONE (07:10)
[2019-12-25] MEDS ORDERED: propofoL 200 MG/20 ML VIAL As Ordered ONE (07:10)
[2019-12-25] MEDS ORDERED: LIDOCAINE 2% 100MG/5ML SDV (FOR ANES.) As Ordered ONE ×2 (07:10→07:12)
[2019-12-25] MEDS ORDERED: ceFAZolin 2 GM/D5W 50 ML IV BAG (J0690 PER 500MG) As Ordered ONE (07:11)
[2019-12-25] MEDS ORDERED: MIDAZOLAM INJ 2MG/2ML VIAL (J2250 PER 1MG) As Ordered ONE (07:11)
[2019-12-25] MEDS ORDERED: dexameTHASONE 4 MG/ML 1ML VIAL (J1100 PER 1MG) As Ordered ONE ×2 (07:15→07:16)
[2019-12-25] MEDS ORDERED: LIDOCAINE 2% MDV 20ML VIAL As Ordered ONE (07:15)
[2019-12-25] MEDS ORDERED: NEOSPORIN GU IRRIG 20 ML VIAL As Ordered ONE (07:16)
[2019-12-25] MEDS ORDERED: BACITRACIN PWD 50,000 UNITS VIAL As Ordered ONE (07:16)
[2019-12-25] MEDS ORDERED: BUPIVACAINE HCL 0.5% 30 ML VIAL As Ordered ONE (07:16)
[2019-12-25 09:00] VITALS: BP 138/71
[2019-12-25] MEDS ORDERED: PERCOCET 5MG/325MG TAB PO PRN (09:00)
[2019-12-25] MEDS ORDERED: fentaNYL 100 MCG/2 ML INJECTION (J3010) IV PRN (09:00)
[2019-12-25] MEDS ORDERED: LR 1,000 ML IV SCH (09:00)
[2019-12-25] MEDS ORDERED: ONDANSETRON 4MG/2ML VIAL IV PRN (09:00)
[2019-12-25] MEDS ORDERED: ePHEDrine SULFATE 25 MG/5 ML(5MG/ML) SYRINGE As Ordered ONE (09:20)
--- NOTE | 2020-01-29 13:34 | REP ---
RIGHT FOOT: 3-VIEWS COMPARISON: 08/15/2018. FINDINGS: There is an osteotomy with single screw fixation in the neck-head of the 2nd digit metatarsal as an interval change. The previous osteotomy is with single screw fixation at the great toe metatarsal neck and 5th digit metatarsal neck are unchanged. There is a bone cyst in the right toe proximal phalanx, unchanged. There is resection of the 5th digit proximal phalange head, unchanged. There are no lytic, blastic, or destructive skeletal changes. No calcifications. Mineralization and joint spaces otherwise are unremarkable. MTDD
--- NOTE | 2020-02-11 11:05 | RO ---
DATE OF OPERATION: 12/25/2019 PREOPERATIVE DIAGNOSIS: Long 2nd metatarsal, right foot. POSTOPERATIVE DIAGNOSIS: Long 2nd metatarsal, right foot. PROCEDURE: Shortening metatarsal osteotomy and internal screw fixation, 2.4 mm x 14 mm x 1, right foot. ANESTHESIA: Local monitored anesthesia care (MAC) . SURGEON: Herman Robert DPM PROFESSOR OF SPORT MANAGEMENT: None. HEMOSTASIS: Ankle pneumatic tourniquet at 200 mm of mercury of 26 minutes. IRRIGATION: Dilute bacitracin, neomycin, and polymyxin B solution. HARDWARE UTILIZED: An Arthrex headed 2.4 x 14 mm screw. DESCRIPTION OF OPERATION: On 12/25/2019, this 59-year-old white female was taken from her hospital room to the operating room and placed on the operating table in a supine position. Following the induction of intravenous (IV) sedation and local regional anesthesia, the right lower extremity was prepped and draped in the usual aseptic manner. Attention was directed to the patient's right foot, where a 4 cm incision was placed on the dorsal aspect of the foot, starting at the head of the 2nd metatarsal, ending in the midshaft region. The incision was deepened to subcutaneous tissues, and all course venous tributaries were identified, underscored, clamped, cut, ligated, and electrocoagulated as necessary. The long and short extensor tendons were retracted in a lateral direction, and a linear incision was placed over the metatarsophalangeal joint. Exposure was created to the head of the 1st metatarsal, and utilizing a metatarsal elevator the plantar plate was released. A Adelaida osteotomy was then created, starting at the articular cartilage of the 2nd metatarsal, paralleling the plantar surface of the foot. The capital fragment was shortened approximately 5 mm and fixated with a 2.4 x 14 mm headed compression screw. The osteotomy was noted to be stable in all three cardinal planes. The wound was flushed with copious amounts of dilute bacitracin, neomycin, and polymyxin B solution. Utilizing rongeur, the dorsal overlying white shelf of bone was removed and filed with a hand-held rasp. The wound was again flushed with copious amounts of dilute bacitracin, neomycin, and polymyxin B solution. Attention was directed toward closure, where the capsular structures were coapted and maintained utilizing 2-0 Monocryl in a simple interrupted-type fashion. Extensor tendons were moved over the capsule and sutured with 2-0 Monocryl in a simple interrupted-type fashion. Subcutaneous tissues were coapted and maintained using 4-0 Monocryl in a simple interrupted-type fashion. Skin incision was coapted and maintained utilizing 5-0 Monocryl in a continuous subcuticular-type fashion. This was additionally reinforced with Steri-Strips. Four mg of dexamethasone sodium phosphate was instilled proximal to the surgical site. Attention was directed toward bandaging, where a sterile compressive bandage was applied consisting of Adaptic, 4 x 4's, 4 x 4 splint, Ella, Kerlix, and Coban. Ankle pneumatic tourniquet was rapidly deflated, and instantaneous capillary filling time was noted to digits 1-5 of the patient's right foot. Patient having apparently tolerated the procedure well was taken from the OR to the recovery room for further monitoring by the anesthesia department. Postoperative instructions given upon discharge. FAITH
== END 2019-12-25 09:16 | disposition home or self-care (01) ==
LOC: M SDC 06:08
PROVIDERS: ATTEND Podiatrist
DX: M20.5X1 Other deformities of toe(s) (acquired), right foot (principal); M79.671 Pain in right foot; E78.5 Hyperlipidemia, unspecified; I10 Essential (primary) hypertension; K21.9 Gastro-esophageal reflux disease without esophagitis; L71.9 Rosacea, unspecified; Z87.891 Personal history of nicotine dependence; E11.9 Type 2 diabetes mellitus without complications; I49.3 Ventricular premature depolarization; Z88.5 Allergy status to narcotic agent; Z79.899 Other long term (current) drug therapy; Z91.018 Allergy to other foods; Z91.013 Allergy to seafood
CPT/HCPCS: 28308; 73630; C1713; J1100; J2250; J2405; J3010

== ENCOUNTER → 2020-04-15 | Outpatient (REF) | payer OTHER | LOC: M LAB REF 16:01 | PROVIDERS: ATTEND Dermatology | DX: D48.9 Neoplasm of uncertain behavior, unspecified (principal) ==

== ENCOUNTER → 2020-06-04 | Outpatient (CLI) | payer OTHER ==
[~2020-06-04] MED LIST changes: +MELO15TA28
== END ==
LOC: M LABSMTC 10:38
PROVIDERS: ATTEND Anesthesiology
DX: Z01.812 Encounter for preprocedural laboratory examination (principal); Z20.822 Contact with and (suspected) exposure to COVID-19

== ENCOUNTER 2020-06-09 08:40 | Day surgery (SDC) | payer OTHER ==
[~2020-06-09] VITALS: Ht 160 cm; Wt 75.7 kg
[~2020-06-09 08:40] MED LIST changes: +LIDOCAINE 2% 100MG/5ML SDV (FOR ANES.) As Ordered ONE; +NS 1,000 ML IV ONE; +fentaNYL 100 MCG/2 ML INJECTION (J3010) As Ordered ONE; +propofoL 200 MG/20 ML VIAL As Ordered ONE
--- NOTE | 2020-06-09 09:59 | ROOR ---
Patient Name: Stacie Canales Procedure Date: 06/09/2020 9:47 AM Date of : 1960 Age: 59 Room: [facility] Gender: Female Note Status: Finalized Procedure: Upper GI endoscopy Indications: Suspected esophageal reflux Providers: Jose Antonio Fang Jr, MD Referring MD: Bethel Navarrete MD Requesting Provider: Medicines: Propofol per Anesthesia Complications: No immediate complications. Procedure: Pre-Anesthesia Assessment: - Prior to the procedure, a History and Physical was performed, and patient medications and allergies were reviewed. The patient is competent. The risks and benefits of the procedure and the sedation options and risks were discussed with the patient. All questions were answered and informed consent was obtained. Patient identification and proposed procedure were verified by the physician and the nurse in the pre-procedure area and in the procedure room. Mental Status Examination: alert and oriented. Airway Examination: normal oropharyngeal airway and neck mobility. Respiratory Examination: clear to auscultation. CV Examination: normal. ASA Grade Assessment: II - A patient with mild systemic disease. After reviewing the risks and benefits, the patient was deemed in satisfactory condition to undergo the procedure. The anesthesia plan was to use moderate sedation / analgesia (conscious sedation). Immediately prior to administration of medications, the patient was re-assessed for adequacy to receive sedatives. The heart rate, respiratory rate, oxygen saturations, blood pressure, adequacy of pulmonary ventilation, and response to care were monitored throughout the procedure. The physical status of the patient was re-assessed after the procedure. The Endoscope was introduced through the mouth, and advanced to the second part of duodenum. The upper GI endoscopy was accomplished without difficulty. The patient tolerated the procedure well. Findings: The upper third of the esophagus, middle third of the esophagus, lower third of the esophagus and gastroesophageal junction were normal. The cardia, gastric fundus, gastric body, gastric antrum, prepyloric region of the stomach and pylorus were normal. Biopsies were taken with a cold forceps for histology. The duodenal bulb, first portion of the duodenum and second portion of the duodenum were normal. Impression: - Normal upper third of esophagus, middle third of esophagus, lower third of esophagus and gastroesophageal junction. - Normal cardia, gastric fundus, gastric body, antrum, prepyloric region of the stomach and pylorus. Biopsied. - Normal duodenal bulb, first portion of the duodenum and second portion of the duodenum. Recommendation: - Return to my office at appointment to be scheduled. Procedure Code(s): --- Professional --- 98132, Esophagogastroduodenoscopy, flexible, transoral; with biopsy, single or multiple Diagnosis Code(s): --- Professional --- K21.9, Gastro-esophageal reflux disease without esophagitis CPT copyright 2019 [employer]. All rights reserved. The codes documented in this report are preliminary and upon death surveys coder review may be revised to meet current compliance requirements. Jose Antonio Fang MD Jose Antonio Fang Jr, MD 06/09/2020 9:59:00 AM Electronically signed by Jose Antonio Fang Jr, MD Number of Addenda: 0 Note Initiated On: 06/09/2020 9:47 AM Estimated Blood Loss: Estimated blood loss: none.
--- NOTE | 2020-06-09 10:09 | ROOR ---
Patient Name: Stacie Canales Procedure Date: 06/09/2020 9:48 AM Date of : 1960 Age: 59 Room: [facility] Gender: Female Note Status: Finalized Procedure: Colonoscopy Indications: Screening for colorectal malignant neoplasm Providers: Jose Antonio Fang Jr, MD Referring MD: Bethel Navarrete MD Requesting Provider: Medicines: Propofol per Anesthesia Complications: No immediate complications. Procedure: Pre-Anesthesia Assessment: - Prior to the procedure, a History and Physical was performed, and patient medications and allergies were reviewed. The patient is competent. The risks and benefits of the procedure and the sedation options and risks were discussed with the patient. All questions were answered and informed consent was obtained. Patient identification and proposed procedure were verified by the physician and the nurse in the pre-procedure area and in the procedure room. Mental Status Examination: alert and oriented. Airway Examination: normal oropharyngeal airway and neck mobility. Respiratory Examination: clear to auscultation. CV Examination: normal. ASA Grade Assessment: II - A patient with mild systemic disease. After reviewing the risks and benefits, the patient was deemed in satisfactory condition to undergo the procedure. The anesthesia plan was to use moderate sedation / analgesia (conscious sedation). Immediately prior to administration of medications, the patient was re-assessed for adequacy to receive sedatives. The heart rate, respiratory rate, oxygen saturations, blood pressure, adequacy of pulmonary ventilation, and response to care were monitored throughout the procedure. The physical status of the patient was re-assessed after the procedure. The Colonoscope was introduced through the anus and advanced to the cecum, identified by appendiceal orifice and ileocecal valve. The colonoscopy was performed without difficulty. The patient tolerated the procedure well. The quality of the bowel preparation was adequate. Findings: The rectum, recto-sigmoid colon, sigmoid colon, descending colon, transverse colon, ascending colon, cecum, appendiceal orifice and ileocecal valve appeared normal. Impression: - The rectum, recto-sigmoid colon, sigmoid colon, descending colon, transverse colon, ascending colon, cecum, appendiceal orifice and ileocecal valve are normal. - No specimens collected. Recommendation: - Discharge patient to home (ambulatory). - Repeat colonoscopy in 10 years for screening purposes. Procedure Code(s): --- Professional --- 55072, Colonoscopy, flexible; diagnostic, including collection of specimen(s) by brushing or washing, when performed (separate procedure) Diagnosis Code(s): --- Professional --- Z12.11, Encounter for screening for malignant neoplasm of colon CPT copyright 2019 [employer]. All rights reserved. The codes documented in this report are preliminary and upon print operator review may be revised to meet current compliance requirements. Jose Antonio Fang MD Jose Antonio Fang Jr, MD 06/09/2020 10:08:56 AM Electronically signed by Jose Antonio Fang Jr, MD Number of Addenda: 0 Note Initiated On: 06/09/2020 9:48 AM Estimated Blood Loss: Estimated blood loss: none.
[2020-06-09] MEDS ORDERED: propofoL 200 MG/20 ML VIAL As Ordered ONE (10:34)
[2020-06-09 10:45] VITALS: BP 159/72
--- NOTE | 2020-06-10 12:07 | ECGEPIP ---
[facility] Test Date: 2020-06-09 Pat Name: CYNDIE MORALES Department: Room: - Gender: Female Cold Reduction Roller: JEFFERY : 1960 Requested By: Jose Antonio Serna Order Number: [id number] Reading MD: Yasmany Tang Measurements Intervals Linch Rate: 58 P: 42 TN: 182 QRS: -11 QRSD: 90 T: -13 QT: 462 QTc: 453 Interpretive Statements Sinus bradycardia Minimal voltage criteria for LVH, may be normal variant ( R in aVL ) Nonspecific ST and T wave abnormality Electronically Signed on 06-10-2020 12:07:15 EST by Yasmany Tang
== END 2020-06-09 10:50 | disposition home or self-care (01) ==
LOC: M OPP 08:40
PROVIDERS: ATTEND Surgery
DX: Z12.11 Encounter for screening for malignant neoplasm of colon (principal); K21.9 Gastro-esophageal reflux disease without esophagitis; D13.1 Benign neoplasm of stomach; I10 Essential (primary) hypertension; R12 Heartburn; M19.90 Unspecified osteoarthritis, unspecified site; G43.909 Migraine, unspecified, not intractable, without status migrainosus; Z87.891 Personal history of nicotine dependence; Z88.5 Allergy status to narcotic agent; Z88.6 Allergy status to analgesic agent; Z91.013 Allergy to seafood; Z91.018 Allergy to other foods; Z79.899 Other long term (current) drug therapy
CPT/HCPCS: 43239; 45378; 88305; 93005; J3010

== ENCOUNTER → 2021-03-21 | Outpatient (CLI) | payer OTHER ==
[~2021-03-21] MED LIST changes: -FENO48TA7 PO; +FENO48TA8 PO; -LIDOCAINE 2% 100MG/5ML SDV (FOR ANES.) As Ordered ONE; -NS 1,000 ML IV ONE; -fentaNYL 100 MCG/2 ML INJECTION (J3010) As Ordered ONE; -propofoL 200 MG/20 ML VIAL As Ordered ONE
--- NOTE | 2021-03-21 15:21 | REP ---
INDICATION: SMOKER COMPARISON: 08/07/2006 TECHNIQUE: Axial noncontrast images from the thoracic inlet to the upper abdomen using low-dose lung screening technique (LDCT). FINDINGS: Bilateral lung camacho are relatively symmetric and well aerated. No acute consolidation, suspicious nodule or mass. No effusion. No pneumothorax. Tracheobronchial tree is patent. Limited evaluation of the mediastinum demonstrates atherosclerotic changes to the aorta and coronary arteries. IMPRESSION: Lung-RADS category 1. No suspicious nodule or mass. Management recommendations include annual low-dose CT surveillance. <Electronically signed by Marvin Narayan > 03/21/21 [id number]
== END ==
LOC: M RAD 14:48
PROVIDERS: ATTEND Family Medicine
DX: F17.201 Nicotine dependence, unspecified, in remission (principal)

== ENCOUNTER → 2021-07-13 | Outpatient (CLI) | payer OTHER ==
[2021-07-13 09:01] LABS: BASO % 0.5 % (0.0-1.0); EOS # 0.1 10^3/uL (0.0-0.5); EOS % 0.9 % (0.0-3.0); HEMATOCRIT 44.5 % (36.0-47.0); HEMOGLOBIN 14.6 g/dl (12.0-15.5); LYMPH % 37.6 % (24.0-44.0); MEAN CORPUSCULAR HEMOGLOBIN 30.6 pg (27.0-33.0); MEAN CORPUSCULAR HGB CONC 32.8 g/dl (32.0-36.5); MEAN CORPUSCULAR VOLUME 93.3 fl (80.0-96.0); MONO # 0.7 10^3/uL (0.0-0.8); MONO % 8.4 % (2.0-8.0); NEUTROPHILS # 4.1 10^3/uL (1.5-8.5); NEUTROPHILS % 52.2 % (36.0-66.0); PLATELET COUNT, AUTOMATED 224 10^3/uL (150-450); RED BLOOD COUNT 4.77 10^6/uL (4.00-5.40); WHITE BLOOD COUNT 7.9 10^3/uL (4.0-10.0)
[2021-07-13 09:25] LABS: ALBUMIN 3.8 GM/DL (3.2-5.2); ALT/SGPT 46 U/L (12-78); BILIRUBIN,TOTAL 0.4 MG/DL (0.2-1.0); BLOOD UREA NITROGEN 10 MG/DL (7-18); CALCIUM LEVEL 9.4 MG/DL (8.8-10.2); CARBON DIOXIDE LEVEL 26 MEQ/L (21-32); CHLORIDE LEVEL 111 MEQ/L (98-107); CREATININE FOR GFR 0.85 MG/DL (0.55-1.30); GLOMERULAR FILTRATION RATE > 60.0 (>45); GLUCOSE, FASTING 175 MG/DL (70-100); POTASSIUM SERUM 4.2 MEQ/L (3.5-5.1); SODIUM LEVEL 142 MEQ/L (136-145); TOTAL PROTEIN 7.5 GM/DL (6.4-8.2)
== END ==
LOC: M EKG 08:27
PROVIDERS: ATTEND Podiatrist
DX: M79.671 Pain in right foot (principal)

== ENCOUNTER → 2021-07-17 | Outpatient (CLI) | payer OTHER | LOC: M LABSMTC 10:12 | PROVIDERS: ATTEND Anesthesiology | DX: Z01.812 Encounter for preprocedural laboratory examination (principal); Z20.822 Contact with and (suspected) exposure to COVID-19 ==

== ENCOUNTER 2021-07-21 07:23 | Day surgery (SDC) | payer OTHER ==
[~2021-07-21] VITALS: Ht 160 cm; Wt 79.9 kg
[~2021-07-21 07:23] MED LIST changes: +LR 1,000 ML IV ONE; +ceFAZolin SOD 2 GM in IV 1 EA IV ONE
[2021-07-21] MEDS ORDERED: MIDAZOLAM INJ 2MG/2ML VIAL (J2250 PER 1MG) As Ordered ONE (07:58)
[2021-07-21] MEDS ORDERED: LIDOCAINE 2% 100MG/5ML SDV (FOR ANES.) As Ordered ONE (07:58)
[2021-07-21] MEDS ORDERED: ONDANSETRON 4MG/2ML VIAL As Ordered ONE (07:58)
[2021-07-21] MEDS ORDERED: propofoL 200 MG/20 ML VIAL As Ordered ONE ×2 (07:58→09:35)
[2021-07-21] MEDS ORDERED: dexameTHASONE 4 MG/ML 1ML VIAL (J1100 PER 1MG) As Ordered ONE (08:34)
[2021-07-21] MEDS ORDERED: LIDOCAINE W/EPINEPHRINE 1% 20ML VIAL As Ordered ONE (08:34)
[2021-07-21] MEDS ORDERED: BUPIVACAINE HCL 0.5% 30 ML VIAL As Ordered ONE (08:34)
[2021-07-21] MEDS ORDERED: GENTAMICIN SULF 80MG/2ML VIAL As Ordered ONE (08:35)
[2021-07-21] MEDS ORDERED: LIDOCAINE 2% MDV 20ML VIAL As Ordered ONE (09:56)
[2021-07-21] MEDS ORDERED: oxyCODONE 5MG TAB PO PRN (10:45)
[2021-07-21] MEDS ORDERED: ROCURONIUM BROMIDE 50 MG/5 ML VIAL As Ordered ONE (10:49)
[2021-07-21 10:55] VITALS: BP 145/67
== END 2021-07-21 11:06 | disposition home or self-care (01) ==
LOC: M SDC 07:23
PROVIDERS: ATTEND Podiatrist
DX: T84.84XA Pain due to internal orthopedic prosthetic devices, implants and grafts, initial encounter (principal); Y79.2 Prosthetic and other implants, materials and accessory orthopedic devices associated with adverse incidents; M24.69 Ankylosis, other specified joint; L90.5 Scar conditions and fibrosis of skin; I10 Essential (primary) hypertension; I49.3 Ventricular premature depolarization; K21.9 Gastro-esophageal reflux disease without esophagitis; E78.5 Hyperlipidemia, unspecified; L71.9 Rosacea, unspecified; M19.90 Unspecified osteoarthritis, unspecified site; K59.00 Constipation, unspecified; E11.9 Type 2 diabetes mellitus without complications; Z87.891 Personal history of nicotine dependence; Z88.8 Allergy status to other drugs, medicaments and biological substances; Z88.5 Allergy status to narcotic agent; Z88.1 Allergy status to other antibiotic agents; Z91.013 Allergy to seafood; Z91.018 Allergy to other foods; Z79.899 Other long term (current) drug therapy
CPT/HCPCS: 20680; 28270; 76000; J0690; J1100; J1580; J2250; J2405

== ENCOUNTER → 2021-12-11 | Outpatient (CLI) | payer OTHER ==
[~2021-12-11] MED LIST changes: -LR 1,000 ML IV ONE; -ceFAZolin SOD 2 GM in IV 1 EA IV ONE
== END ==
LOC: M WUC 09:35
PROVIDERS: ATTEND Physician Assistant
DX: S20.212A Contusion of left front wall of thorax, initial encounter (principal)

== ENCOUNTER → 2022-08-28 | Outpatient (CLI) | payer OTHER | LOC: M RAD 10:25 | PROVIDERS: ATTEND Family Medicine | DX: Z12.2 Encounter for screening for malignant neoplasm of respiratory organs (principal); Z87.891 Personal history of nicotine dependence ==

== ENCOUNTER → 2022-10-10 | Outpatient (CLI) | payer OTHER | LOC: M WHC 08:55 | PROVIDERS: ATTEND Obstetrics & Gynecology | DX: Z12.31 Encounter for screening mammogram for malignant neoplasm of breast (principal) ==

== ENCOUNTER → 2022-10-22 | Outpatient (REF) | payer OTHER | LOC: M LAB REF 12:04 | PROVIDERS: ATTEND Physician Assistant Medical | DX: N39.0 Urinary tract infection, site not specified (principal) ==

== ENCOUNTER → 2022-11-27 | Outpatient (CLI) | payer OTHER ==
[2022-11-27 11:18] LABS: BLOOD UREA NITROGEN 10 MG/DL (9-23); CREATININE FOR GFR 0.62 MG/DL (0.55-1.30); GLOMERULAR FILTRATION RATE > 60.0 (>45)
== END ==
LOC: M PLALAB 08:52
PROVIDERS: ATTEND Orthopaedic Surgery
DX: M79.671 Pain in right foot (principal)

== ENCOUNTER → 2022-12-13 | Outpatient (CLI) | payer OTHER | LOC: M PLARAD 07:54 | PROVIDERS: ATTEND Orthopaedic Surgery | DX: M79.671 Pain in right foot (principal); R93.6 Abnormal findings on diagnostic imaging of limbs; M79.89 Other specified soft tissue disorders ==

== ENCOUNTER → 2023-03-27 | Outpatient (CLI) | payer OTHER ==
[2023-03-27 15:43] LABS: BASO % 0.4 % (0.0-1.0); EOS % 0.2 % (0.0-3.0); HEMATOCRIT 41.8 % (36.0-47.0); HEMOGLOBIN 13.4 g/dl (12.0-15.5); LYMPH # 3.6 10^3/uL (1.5-5.0); LYMPH % 42.7 % (24.0-44.0); MEAN CORPUSCULAR HEMOGLOBIN 30.4 pg (27.0-33.0); MEAN CORPUSCULAR HGB CONC 32.1 g/dl (32.0-36.5); MEAN CORPUSCULAR VOLUME 94.8 fl (80.0-96.0); MONO # 0.6 10^3/uL (0.0-0.8); MONO % 7.3 % (2.0-8.0); NEUTROPHILS # 4.1 10^3/uL (1.5-8.5); NEUTROPHILS % 49.2 % (36.0-66.0); PLATELET COUNT, AUTOMATED 238 10^3/uL (150-450); RED BLOOD COUNT 4.41 10^6/uL (4.00-5.40); WHITE BLOOD COUNT 8.4 10^3/uL (4.0-10.0)
[2023-03-27 16:07] LABS: BLOOD UREA NITROGEN 9 MG/DL (9-23); CALCIUM LEVEL 9.1 MG/DL (8.3-10.6); CARBON DIOXIDE LEVEL 28 MMOL/L (20-31); CHLORIDE LEVEL 105 MMOL/L (98-107); CREATININE FOR GFR 0.66 MG/DL (0.55-1.30); GLOMERULAR FILTRATION RATE > 60.0 (>45); GLUCOSE, FASTING 104 MG/DL (74-106); POTASSIUM SERUM 3.9 MMOL/L (3.5-5.1); SODIUM LEVEL 138 MMOL/L (136-145)
== END ==
LOC: M PLALAB 14:36
PROVIDERS: ATTEND Internal Medicine Cardiovascular Disease
DX: I44.7 Left bundle-branch block, unspecified (principal)

== ENCOUNTER → 2023-10-01 | Outpatient (REF) | payer OTHER ==
[2023-10-01 13:22] LABS: APPEARANCE, URINE CLOUDY (CLEAR); BACTERIA, URINE AUTO 2+ (NEGATIVE); BILIRUBIN, URINE AUTO NEGATIVE (NEGATIVE); BLOOD, URINE BLOOD NEGATIVE (NEGATIVE); COLOR, URINE YELLOW (YELLOW); GLUCOSE, URINE (UA) AUTO NEGATIVE (NEGATIVE); KETONE, URINE AUTO NEGATIVE (NEGATIVE); LEUKOCYTE ESTERASE, URINE AUTO 3+ (NEGATIVE); MUCUS, URINE MODERATE (NEGATIVE); NITRITE, URINE AUTO NEGATIVE (NEGATIVE); PROTEIN, URINE AUTO 1+ mg/dL (NEGATIVE); RBC, URINE AUTO 13 /HPF (0-3); SPECIFIC GRAVITY URINE AUTO 1.016 (1.002-1.035); SQUAMOUS EPITHELIAL CELL UR AU 1 /HPF (0-6); UROBILINOGEN, URINE AUTO 0.2 mg/dL (0.0-2.0); WBC, URINE AUTO TNTC /HPF (0-3)
== END ==
LOC: M LAB REF 12:22
PROVIDERS: ATTEND Physician Assistant
DX: N39.0 Urinary tract infection, site not specified (principal)

== ENCOUNTER → 2024-01-28 | Outpatient (CLI) | payer MEDICARE, OTHER ==
[~2024-01-28] MED LIST changes: +ESOM1CAP20 PO; -ESOM1CAP5 PO
== END ==
LOC: M RAD 15:46
PROVIDERS: ATTEND Family Medicine
DX: F17.211 Nicotine dependence, cigarettes, in remission (principal)

== ENCOUNTER → 2024-02-25 | Outpatient (REF) | payer MEDICARE, OTHER ==
[2024-02-25 17:58] LABS: APPEARANCE, URINE HAZY (CLEAR); BACTERIA, URINE AUTO NEGATIVE (NEGATIVE); BILIRUBIN, URINE AUTO NEGATIVE (NEGATIVE); BLOOD, URINE BLOOD NEGATIVE (NEGATIVE); COLOR, URINE YELLOW (YELLOW); GLUCOSE, URINE (UA) AUTO NEGATIVE (NEGATIVE); KETONE, URINE AUTO NEGATIVE (NEGATIVE); LEUKOCYTE ESTERASE, URINE AUTO 2+ (NEGATIVE); MUCUS, URINE LARGE (NEGATIVE); NITRITE, URINE AUTO NEGATIVE (NEGATIVE); PROTEIN, URINE AUTO 1+ mg/dL (NEGATIVE); RBC, URINE AUTO 0 /HPF (0-3); SPECIFIC GRAVITY URINE AUTO 1.024 (1.002-1.035); SQUAMOUS EPITHELIAL CELL UR AU 0 /HPF (0-6); UROBILINOGEN, URINE AUTO 0.2 mg/dL (0.0-2.0); WBC, URINE AUTO 121 /HPF (0-3)
== END ==
LOC: M LAB REF 16:22
PROVIDERS: ATTEND Physician Assistant
DX: N39.0 Urinary tract infection, site not specified (principal)